=== PATIENT | male | born 1980 ===

== ENCOUNTER 2021-04-03 12:16 | Outpatient (REF) | payer OTHER, SELFPAY ==
[2021-04-03 13:31] LABS: COVID-19 Test Negative (Negative)
== END 2021-04-03 12:17 | disposition home or self-care (01) ==
LOC: HO.LAB 12:16
PROVIDERS: Visit Provider Internal Medicine
DX: Z20.822 Contact with and (suspected) exposure to COVID-19 (principal)
CPT/HCPCS: 87635; C9803

== ENCOUNTER → 2022-05-29 10:06 | Outpatient (BNVA) | payer BC, SELFPAY | PROVIDERS: Visit Provider Physician Assistant Surgical | DX: Z13.89 Encounter for screening for other disorder (principal) ==

== ENCOUNTER → 2022-06-06 10:37 | Outpatient (BNVA) | payer BC, SELFPAY | PROVIDERS: PCP Internal Medicine; Visit Provider Physician Assistant Surgical | DX: Z13.89 Encounter for screening for other disorder (principal) ==

== ENCOUNTER 2022-06-06 11:51 | Outpatient (REF) | payer BC, SELFPAY ==
--- NOTE | ~2022-06-06 | XR_ITS ---
EXAMINATION: XR CHEST CLINICAL INFORMATION: Reason for Exam E66.01 - Morbid (severe) obesity due to excess calories COMPARISON: None TECHNIQUE: 2 views of the chest FINDINGS: Clear lungs. No pneumothorax or pleural effusion. Borderline enlarged cardiac silhouette. XR/XR chest 2V IMPRESSION: Borderline enlarged cardiac silhouette.
--- NOTE | 2022-06-06 11:58 | ECG_ITS ---
Test Reason : morbid obesity Blood Pressure : / mmHG Vent. Rate : 064 BPM Atrial Rate : 064 BPM P-R Int : 186 ms QRS Dur : 102 ms QT Int : 408 ms P-R-T Axes : 018 030 199 degrees QTc Int : 420 ms Normal sinus rhythm Left ventricular hypertrophy with repolarization abnormality ( Sokolow-Romero ) Abnormal ECG No previous ECGs available Referred By: Jayshree Morales Electronically Signed By:ALTON ROMERO MD
[2022-06-06 12:04] LABS: MANUAL DIFF FLAG NO
[2022-06-06 12:26] LABS: Basophils Percent Auto 0.4 % (0-2); Eosinophils Absolute Auto 0.2 X10*3/uL (0.0-0.4); Hematocrit 44.5 % (42.0-52.0); Imm Gran Abs Auto 0.04 X10*3/uL (0.00-0.03); Imm Gran Pct Auto 0.4 % (0.0-0.4); Mean Corpuscular HGB Conc 33.7 g/dl (31.0-36.0); Mean Corpuscular Hemoglobin 27.6 pg (27.0-33.0); Mean Corpuscular Volume 81.8 fL (80.0-98.0); Mean Platelet Volume 9.9 fL (9.4-12.4); Monocytes Absolute Auto 0.6 X10*3/uL (0.1-1.2); Monocytes Percent Auto 6.1 % (2-11); Neutrophils Absolute Auto 5.3 x10*3/uL (2.0-8.3); Neutrophils Percent Auto 58.1 % (45-73); Platelet Count 262 X10*3/uL (160-400); Red Blood Count 5.44 X10*6/uL (4.60-5.80); White Blood Count 9.2 X10*3/uL (4.8-10.8)
[2022-06-06 12:38] LABS: Estimated Average Glucose 108 mg/dL; Hemoglobin A1c % 5.4 %
[2022-06-06 13:07] LABS: Alanine Aminotransferase 52 U/L (0-40); Albumin Level 4.2 g/dL (3.5-5.0); Alkaline Phosphatase 78 U/L (39-117); Anion Gap 14 (12-20); Aspartate Amino Transferase 32 U/L (5-37); Bilirubin Total 1.1 mg/dL (0.0-1.0); Blood Urea Nitrogen 12 mg/dL (9-16); C Reactive Protein 0.89 mg/dL (< or = 0.50); Carbon Dioxide 26 mmol/L (22-29); Chloride 107 mmol/L (96-108); Cholesterol 161 mg/dL; Estimated Glomerular Filt Rate 59; Glucose Random 96 mg/dL (60-115); HDL Cholesterol 30 mg/dL; Iron 71 mcg/dL (45-160); LDL Cholesterol Calculated 114 mg/dl; Percent Iron Saturation 28 % (15-50); Potassium 3.7 mmol/L (3.3-5.1); Sodium 143 mmol/L (135-145); Total Iron Binding Capacity 258 mcg/dL (228-428); Total Protein 7.2 g/dL (6.5-8.0); Triglycerides 87 mg/dL; Unsaturated Iron Binding 187 ug/dL
[2022-06-06 13:27] LABS: Ferritin 158 ng/mL (20-250); Folate 18.8 ng/mL (> or = 4.0); Insulin 13 uU/mL (2-29); TSH reflex Free T4 1.07 uIU/mL (0.32-4.0); Vitamin B12 750 pg/mL (200-900); Vitamin D 25-OH Total 30.5 ng/mL (>30)
[2022-06-07 16:23] LABS: Calcium (PTHI) 9.3 mg/dL (8.6-10.3); PTHI 63 pg/mL (16-77)
[2022-06-11 06:14] LABS: Zinc 78 mcg/dL (60-130)
[2022-06-12 17:39] LABS: Vitamin A 61 mcg/dL (38-98)
[2022-06-13 15:29] LABS: Vitamin B1 11 nmol/L (8-30)
== END 2022-06-06 11:52 | disposition home or self-care (01) ==
LOC: HO.LAB 11:51
PROVIDERS: Visit Provider Physician Assistant Surgical
DX: Z01.818 Encounter for other preprocedural examination (principal); E66.01 Morbid (severe) obesity due to excess calories; I10 Essential (primary) hypertension; Z20.2 Contact with and (suspected) exposure to infections with a predominantly sexual mode of transmission
CPT/HCPCS: 36415; 71046; 80053; 80061; 82306; 82607; 82728; 82746; 83036; 83525; 83540; 83970; 84425; 84443; 84590; 84630; 85025; 86140; 93005

== ENCOUNTER → 2022-06-25 14:30 | Outpatient (BNVA) | payer BC, SELFPAY | PROVIDERS: PCP Internal Medicine; Visit Provider Counselor Mental Health | DX: Z13.89 Encounter for screening for other disorder (principal) ==

== ENCOUNTER 2023-01-01 10:47 | Outpatient (AMB) | payer BC, SELFPAY ==
--- NOTE | 2023-01-01 11:01 | A.OFFVIS_ITS ---
Intake VS Expanded 01/01/23 11:18 Blood Pressure Location Rt brachial Blood Pressure Position Sitting Pulse 66 Pulse Source Pulse Oximeter Temp 97.7 F Temperature Source Temporal Artery Scan Pulse Oximetry 98 Oxygen Delivery Method Room Air Height 5 ft 10.5 in Weight 280 lb 9.6 oz BMI 39.7 Body Fat % 33.8 Body Fat Mass 94.8 Fat Free Mass 185.6 Visceral Fat Rating 18.0 Body Water % 49.4 Body Water Mass 138.6 Muscle Mass/Score 176.6 Basal Metabolic Rate/Score 2,577 Intake Visit Reasons: (OV) Re-Est SWL BMI 39.3 Draw Frame Operator Required: No Allergies No Known Allergies [No Known Allergies*] Allergy (Verified 01/01/23 11:15) Medication List - Last Reconciled 01/01/23 by CHAYITO Bright amlodipine 10 mg PO DAILY carvedilol 6.25 mg PO BID lisinopril 40 mg PO DAILY multivitamin 1 tab PO DAILY omega 0-ixv-cgy-fish oil 300-1,000 mg (Fish Oil) 1 cap PO DAILY HPI HPI Comments History of Present Illness Details Pt is here to start the [facility] Weight [facility] surgical weight loss program. He states that he heard about the program from his brother who has successfully undergone surgery with os.. He presented for an initial appointment in May 2022 but he stated that he was going through some personal issues and has since returned to attempt successful endeavor. Her goal is to lose weight and achieve a healthy lifestyle as well as to improve, if not resolve, obesity rel ated medical conditions, including htn, . He reports first being concerned about his weight 4-5 years, highest weight to date was 284. Current weight is 280.6 pounds with a BMI of 39.7. He has tried multiple methods of weight loss including fad diets without permanent results. He lives with his brother. He works 5 days per week for [employer]. He wakes at:?6am, and goes to bed at?10pm. Dinner is at 6 pm. Breakfast: bagel w cc coffee w creamer AM snack: tea or another coffee Lunch: subway or hot table sandwich take out PM snack: skip Dinner: fast food After dinner: apple pie, ice cream, brownie Other snacks: cookies Liquids: 64 oz water, no soda, no juice Alcohol/marijuana/tobacco intake: hard seltzer/vodka (4-5 drinks twice per week), rare edible, no tobacco Exercise: pelaton and tonal at home PFS Surgical History H/O wisdom tooth extraction Family History Sister Breast cancer in situ Brain cancer Social History Household Members: Family Household Members Other:: brother Alcohol intake: current Alcohol intake frequency: a few times a month Alcohol type: hard liquor Patient Tobacco Use Status: Never used Tobacco Current occupational status: employed 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 Review of Systems Const All systems reviewed & are unremarkable except as noted in HPI and below Physical Exam Vital Signs: Last Vital Signs Temp 97.7 F 01/01/23 11:18 Pulse 66 01/01/23 11:18 Pulse Ox 98 01/01/23 11:18 Oxygen Delivery Method Room Air 01/01/23 11:18 BMI result Body Mass Index 39.7 Const General: cooperative, healthy appearing and no acute distress Orientation/consciousness: patient oriented x3 HEENT Head: Yes normal to inspection Ears: hearing grossly normal bilaterally General nose exam: Normal external nose present Face and sinus: Yes normal facial exam Eyes General: appearance normal, both eyes and all related structures Resp Effort & Inspection: normal respiratory effort Auscultation: clear to auscultation bilaterally Cardio Rate: regular rate Rhythm: regular rhythm Heart sounds: S1 normal heart sound present and S2 normal heart sound present GI Inspection: Yes normal to inspection, No distended and Yes obesity Palpation (GI): Soft to palpation, nontender and no guarding Auscultation: normal bowel sounds Skin General skin exam: no rashes or lesions noted Neuro General: patient oriented x3 Extrem General: No edema Psych Appearance: grossly normal Mental Status: mental status grossly normal Speech and movement: Normal speech and movement present Affect: normal affect Attitude: cooperative Assessment & Plan Assessment & Plan (1) Morbid obesity: Code(s): E66.01 - Morbid (severe) obesity due to excess calories Plan: This is a?42 yo male who will start our SW program to prepare for bariatric surgery.? Blood work, h pylori , CXR, ECG, Abd US and UGI have been ordered. He is being scheduled for RD and BH initial consultations. He will start SWL classes and watch the first three videos before her next appointment. ? Adequate sleep of 7-8 hours per night discussed, awakening at 6 am and going to bed at 10 pm ? Purchase body composition analyzer scale (Eran parikh or Carlee recommended) and check weight weekly. The best time to do this is first thing in the morning after going to the bathroom. 1. Nutritional counseling: Be sure to careful read the number of scoops per shake Start with 2 Celebrate Rebuild shakes ([facility] [place], [employer], [place]), (2 scoops in 20 oz unsweetened almond milk) First shake at 7am-9am Second shake at 11am-1pm 1 protein bar ([employer] bars at [facility] [place], [employer], [place]) at 2pm-4pm. Dinner at 630pm (10 forks of protein and 10 forks of salad/vegetables). Meal to include lean meat (beef, fish, pork, turkey, chicken), cooked vegetables or a salad with olive oil and/or fruits (berries, pears, apples, kiwi). Avoid salt, breads, potatoes, rice, pasta, desserts. Try to drink 64 oz of water daily and avoid soda, alcohol and juices. ?2. Each shake would be drunk slowly, like coffee in a period of 2 hours. ?3. Cut each bar in 4 pieces and eat each piece in 30 min ?to make each bar last 2 hours. ?4. I emphasized the importance of measuring accurately the food portion and measure it carefully when serving the food on the plate ?5. The meal portions include 10 full-size forks of meat and 10 full-size forks of salad. You always eat the meat portion but you can replace up to half of the forks of salad/vegetables with rice, potatoes or pasta, or a fruit ?if you like. The less you do it the better weight loss will be. ?6. One full-size fork is what can be scooped on the fork without falling aside and not what can be bit with the fork. Use regular forks like those you find in a typical restaurant. ?7.? Please send me weight measurements as soon as possible and then once a week. Always include your diet and exercise plan. Alternatively come weekly at the office for weight checks and send me the measurements. ?8. Exercise counseling: Begin by watching a stretching for beginners video. Start slowly and begin to stretch your muscles. You should do this before and after each exercise session to prevent injury. You have access to the Pelaton bike and Tonal exercise machine at home. Start using the stationary bike. The easiest would be to chose the fat-burn or interval training program on the machine and do this until you reach the 300 calories burned goal. Tracking calories is essential. The goal is to burn 300 calories daily or 2000 calories per week. You certainly can also do weight lifting using the Tonal prior to the cardio workout but not at the expense of the cardio workout. 9. Alternatively start walking outside daily, tracking calories with a goal of 300 calories per day, daily. You can download the rob [employer] which can track your time, distance and calories while walking outside. You press start in the rob when you start and then stop when you are finished. 10.? It is important to communicate by text with me weekly (your weight fox surements from your scale and any problems you are having) to give you the best outcome. 11. Please get labs, EKG and chest X-Ray within 1 week. 12. Discussed and answered all questions regarding?obtained consent to participate in the [place] [facility]?Registry. 13. Please follow the diet plan exactly, without any change. If you do not like something about the plan or you feel hungry, you need to communicate with me so I can help you revise the plan. You should not change the plan yourself. Text me at [phone] 14. Goal is to lose at least 12 pounds in the first month 15. Goal is to lose 10% of your weight before surgery, which is about 28 lbs. Ultimate weight goal: 252 lbs before surgery Patient is morbidly obese and is not considered stable at this time.?I spent a total of 70 minutes reviewing/updating records, examining the patient and counseling the patient on weight management as detailed above. Orders: Orders IRON PROFILE Today E66.01 - Morbid (severe) obesity due to excess calories, I10 - Essential (primary) hypertension Complete Blood Count Auto Diff Today E66.01 - Morbid (severe) obesity due to excess calories, I10 - Essential (primary) hypertension Vitamin B1 Today E66.01 - Morbid (severe) obesity due to excess calories, I10 - Essential (primary) hypertension Vitamin A Today E66.01 - Morbid (severe) obesity due to excess calories, I10 - Essential (primary) hypertension H Pylori Breath Test Today E66.01 - Morbid (severe) obesity due to excess calories, I10 - Essential (primary) hypertension US abdomen comp w elastography Today E66.01 - Morbid (severe) obesity due to excess calories, I10 - Essential (primary) hypertension XR chest 2V Today E66.01 - Morbid (severe) obesity due to excess calories, I10 - Essential (primary) hypertension ECG 12 lead EKG Today E66.01 - Morbid (severe) obesity due to excess calories, I10 - Essential (primary) hypertension FL upper GI w air Today E66.01 - Morbid (severe) obesity due to excess calories, I10 - Essential (primary) hypertension Insulin Today E66.01 - Morbid (severe) obesity due to excess calories, I10 - Essential (primary) hypertension Lipid Panel Today E66.01 - Morbid (severe) obesity due to excess calories, I10 - Essential (primary) hypertension Vitamin B12 and Folate Today E66.01 - Morbid (severe) obesity due to excess calories, I10 - Essential (primary) hypertension Zinc Today E66.01 - Morbid (severe) obesity due to excess calories, I10 - Essential (primary) hypertension Comprehensive Met. Panel Today E66.01 - Morbid (severe) obesity due to excess calories, I10 - Essential (primary) hypertension C Reactive Protein Today E66.01 - Morbid (severe) obesity due to excess calories, I10 - Essential (primary) hypertension Ferritin Today E66.01 - Morbid (severe) obesity due to excess calories, I10 - Essential (primary) hypertension PTHI Today E66.01 - Morbid (severe) obesity due to excess calories, I10 - Essential (primary) hypertension TSH reflex Free T4 Today E66.01 - Morbid (severe) obesity due to excess calories, I10 - Essential (primary) hypertension Vitamin D 25-OH Total Today E66.01 - Morbid (severe) obesity due to excess calories, I10 - Essential (primary) hypertension Hemoglobin A1c Today E66.01 - Morbid (severe) obesity due to excess calories, I10 - Essential (primary) hypertension Referrals Nutrition/Dietitian Referral E66.01 - Morbid (severe) obesity due to excess calories, I10 - Essential (primary) hypertension Coding Level of Care Code Est Pt Level 5 (61121) Diagnoses Morbid obesity E66.01 Time Spent (min) 70
[2023-01-01 11:18] VITALS: PULSE 66; TEMP 36.5; O2SAT 98; BMI 39.7
== END 2023-01-01 17:36 | disposition home or self-care (01) ==
PROVIDERS: PCP Internal Medicine; Visit Provider Physician Assistant Surgical
DX: E66.01 Morbid (severe) obesity due to excess calories (principal); Z68.39 Body mass index [BMI] 39.0-39.9, adult
CPT/HCPCS: 99215

== ENCOUNTER → 2023-01-01 10:47 | Outpatient (BNVA) | payer BC, SELFPAY | PROVIDERS: PCP Internal Medicine; Visit Provider Physician Assistant Surgical ==

== ENCOUNTER 2023-01-22 11:56 | Outpatient (REF) | payer BC, SELFPAY ==
--- NOTE | ~2023-01-22 | XR_ITS ---
EXAMINATION: XR CHEST CLINICAL INFORMATION: Morbid, severe obesity COMPARISON: 06/06/2022 TECHNIQUE: 2 views of the chest were obtained. FINDINGS: Cardiac silhouette upper limits of normal in size. There is no gross pneumothorax. No pleural effusion. No focal consolidation to suggest pneumonia. Mild S-shaped thoracolumbar scoliosis. XR/XR chest 2V IMPRESSION: Cardiac silhouette upper limits of normal in size. On previous exam, the cardiac silhouette was described as borderline enlarged. Correlation with cardiac exam recommended to determine further management.
--- NOTE | 2023-01-22 12:02 | ECG_ITS ---
Test Reason : E66.01 Blood Pressure : / mmHG Vent. Rate : 063 BPM Atrial Rate : 063 BPM P-R Int : 204 ms QRS Dur : 102 ms QT Int : 382 ms P-R-T Axes : 069 017 030 degrees QTc Int : 390 ms Normal sinus rhythm Minimal voltage criteria for LVH, may be normal variant ( Sokolow-Romero ) Nonspecific T wave abnormality Abnormal ECG When compared with ECG of 06-JUN-2022 12:06, Nonspecific T wave abnormality has replaced inverted T waves in Lateral leads Referred By: Michael Lutz Electronically Signed By:BANDAR STEPHEN MD
[2023-01-22 12:22] LABS: MANUAL DIFF FLAG NO
[2023-01-22 13:49] LABS: Basophils Percent Auto 0.3 % (0-2); Eosinophils Absolute Auto 0.1 X10*3/uL (0.0-0.4); Eosinophils Percent Auto 1.2 % (0-4); Estimated Average Glucose 91 mg/dL; Hematocrit 43.1 % (42.0-52.0); Hemoglobin 14.6 g/dl (14.0-18.0); Hemoglobin A1c % 4.8 % (<6.0); Imm Gran Abs Auto 0.01 X10*3/uL (0.00-0.03); Imm Gran Pct Auto 0.1 % (0.0-0.4); Lymphocytes Absolute Auto 2.7 X10*3/uL (1.2-4.9); Lymphocytes Percent Auto 30.3 % (20-40); Mean Corpuscular HGB Conc 33.9 g/dl (31.0-36.0); Mean Corpuscular Hemoglobin 28.2 pg (27.0-33.0); Mean Corpuscular Volume 83.4 fL (80.0-98.0); Mean Platelet Volume 10.2 fL (9.4-12.4); Monocytes Absolute Auto 0.6 X10*3/uL (0.1-1.2); Monocytes Percent Auto 6.7 % (2-11); Neutrophils Absolute Auto 5.5 x10*3/uL (2.0-8.3); Neutrophils Percent Auto 61.4 % (45-73); Platelet Count 267 X10*3/uL (160-400); Red Blood Count 5.17 X10*6/uL (4.60-5.80); Red Cell Distribution Width 12.7 % (11.0-16.0); White Blood Count 8.9 X10*3/uL (4.8-10.8)
[2023-01-22 14:29] LABS: Alanine Aminotransferase 29 U/L (0-40); Albumin Level 4.3 g/dL (3.5-5.0); Alkaline Phosphatase 74 U/L (39-117); Anion Gap 10 (12-20); Aspartate Amino Transferase 26 U/L (5-37); Bilirubin Total 0.9 mg/dL (0.0-1.0); Blood Urea Nitrogen 19 mg/dL (9-16); C Reactive Protein 0.53 mg/dL (< or = 0.50); Calcium 9.7 mg/dL (8.4-10.2); Carbon Dioxide 27 mmol/L (22-29); Chloride 106 mmol/L (96-108); Cholesterol 107 mg/dL (<200); Estimated Glomerular Filt Rate 47; Glucose Random 87 mg/dL (60-115); HDL Cholesterol 25 mg/dL (>40); Iron 57 mcg/dL (45-160); LDL Cholesterol Calculated 68 mg/dL (<100); Percent Iron Saturation 22 % (15-50); Potassium 3.4 mmol/L (3.3-5.1); Sodium 140 mmol/L (135-145); Total Iron Binding Capacity 256 mcg/dL (228-428); Total Protein 7.8 g/dL (6.5-8.0); Triglycerides 71 mg/dL (<150); Unsaturated Iron Binding 199 ug/dL
[2023-01-22 14:51] LABS: Ferritin 194 ng/mL (20-250); Insulin 9 uU/mL (2-29); TSH reflex Free T4 0.72 uIU/mL (0.32-4.0); Vitamin D 25-OH Total 31.2 ng/mL (>30)
[2023-01-22 14:52] LABS: Folate 17.5 ng/mL (> or = 4.0); Vitamin B12 944 pg/mL (200-900)
[2023-01-24 16:34] LABS: Calcium (PTHI) 8.4 mg/dL (8.6-10.3); PTHI 27 pg/mL (16-77)
[2023-01-25 07:49] LABS: Zinc 72 mcg/dL (60-130)
[2023-01-27 11:48] LABS: Vitamin B1 19 nmol/L (8-30)
[2023-01-27 17:53] LABS: Vitamin A 59 mcg/dL (38-98)
== END 2023-01-22 11:57 | disposition home or self-care (01) ==
LOC: HO.LAB 11:56
PROVIDERS: PCP Internal Medicine; Visit Provider Physician Assistant Surgical
DX: Z11.2 Encounter for screening for other bacterial diseases (principal); E66.01 Morbid (severe) obesity due to excess calories; I10 Essential (primary) hypertension
CPT/HCPCS: 36415; 71046; 80053; 80061; 82306; 82607; 82728; 82746; 83036; 83525; 83540; 83970; 84425; 84443; 84590; 84630; 85025; 86140; 93005; 99211

== ENCOUNTER 2023-01-22 13:25 | Outpatient (REF) | payer BC, SELFPAY ==
[2023-01-24 14:36] LABS: H Pylori Breath Test Negative (Negative)
== END 2023-01-22 13:26 | disposition home or self-care (01) ==
LOC: HO.LNP 13:25
PROVIDERS: Physician Assistant Surgical; Visit Provider Physician Assistant Surgical
DX: E66.01 Morbid (severe) obesity due to excess calories (principal); I10 Essential (primary) hypertension
CPT/HCPCS: 83013

== ENCOUNTER 2023-01-23 15:01 | Outpatient (REF) | payer BC, SELFPAY | END 2023-01-23 15:02 | disposition home or self-care (01) | LOC: HO.LNP 15:01 | PROVIDERS: Visit Provider Physician Assistant Surgical | DX: Z13.89 Encounter for screening for other disorder (principal) ==

== ENCOUNTER 2023-01-31 09:48 | Outpatient (REF) | payer BC, SELFPAY ==
--- NOTE | ~2023-01-31 | US_ITS ---
EXAMINATION: US COMPLETE ABDOMEN WITH LIVER ELASTOGRAPHY CLINICAL INFORMATION: Morbid obesity. COMPARISON: None available. TECHNIQUE: Real-time imaging of the abdominal viscera. Noninvasive ultrasound liver fibrosis assessment is performed using Sheng ElastPQ point quantification shear wave elastography (2D-SWE) with a C5-2 MHz transducer. Multiple elastography samples are obtained. FINDINGS: PANCREAS: Limited. The visualized pancreatic head and body are normal in appearance. The remainder of the pancreas is obscured from visualization by the overlying bowel gas. ABDOMINAL AORTA: The proximal, middle, and distal aortic segments are normal in caliber. INFERIOR VENA CAVA: Visualized portions are normal. LIVER: Normal. The liver demonstrates normal size, contour and echogenicity. No focal lesion or intrahepatic biliary duct dilatation. The right lobe measures 20.3 cm in length. The left lobe measures 9.8 cm in length. Portal flow is towards the liver (hepatopetal). Shear wave liver elastography median stiffness is 1.62 m/s (reference: normal median stiffness is 1.3 m/s or less). IQR/median stiffness to assess sampling precision is 0.15 (reference: good quality data set is IQR/median stiffness of 0.15 or less). GALLBLADDER: Normal. The gallbladder is physiologically distended without evidence of stones, sludge, polyps, wall thickening or pericholecystic fluid. COMMON BILE DUCT: Normal in caliber measuring 0.2 cm in diameter. RIGHT KIDNEY: At the interpolar aspect, a 1.9 x 1.5 x 1.8 cm mildly complex cyst is seen with solitary fine septation. This shows no mural nodularity or associated color Doppler flow. No hydronephrosis. No renal calculi or focal parenchymal lesions. The kidney measures 11.4 cm in maximum dimension. LEFT KIDNEY: Normal. No hydronephrosis. No renal calculi or focal parenchymal lesions. The kidney measures 10.7 cm in maximum dimension. SPLEEN: No focal finding. The spleen measures 13.0 cm in maximum dimension. FREE FLUID: None. US/US abdomen comp w elastography IMPRESSION: 1. There is mild hepatosplenomegaly. 2. There is generalized increase in hepatic echotexture, consistent with fatty infiltration or hepatocellular disease. Please correlate clinically. No focal hepatic mass or intrahepatic biliary dilatation is seen. 3. Liver elastography: In the absence of other known clinical signs, measurements rule out compensated advanced chronic liver disease. If there are known clinical signs, further testing may be needed for confirmation. 4. Technically limited ultrasound examination of the pancreatic tail. REFERENCE: Society of Radiologists in Ultrasound Liver Stiffness Thresholds (2020): LIVER STIFFNESS THRESHOLDS: *Liver Stiffness equal or less than 1.3 m/s: High probability of being normal. *Liver Stiffness less than 1.7 m/s: In the absence of other known clinical signs, rules out compensated advanced chronic liver disease. *Liver Stiffness 1.7-2.1 m/s: Suggestive of compensated advanced chronic liver disease but need further test for confirmation. *Liver Stiffness over 2.1 m/s: Rules in compensated advanced chronic liver disease. *Liver Stiffness over 2.4 m/s: Suggestive of clinically significant portal hypertension. QUALITY OF DATA SET: *IQR/Median value equal or less than 0.15 implies a quality data set. *IQR/Median value over 0.15 implies a poor quality data set. SIGNIFICANT CHANGE FROM PRIOR EXAM: Significant change if liver stiffness measurement is 10% or greater from prior exam. OTHER CONSIDERATIONS: The stage of liver fibrosis may be overestimated in the setting of acute hepatitis, liver inflammation, elevated liver function tests, hepatic vascular congestion, obstructive cholestasis, non-fasting state, and infiltrative diseases such as amyloidosis and lymphoma. In some patients with NAFLD, the liver stiffness thresholds for compensated advanced chronic liver disease may be lower. In causes other than viral hepatitis and NAFLD, liver stiffness thresholds are not well established.
== END 2023-01-31 09:49 | disposition home or self-care (01) ==
LOC: HO.US 09:48
PROVIDERS: PCP Internal Medicine; Visit Provider Physician Assistant Surgical
DX: E66.01 Morbid (severe) obesity due to excess calories (principal); I10 Essential (primary) hypertension
CPT/HCPCS: 76705; 76981

== ENCOUNTER 2023-02-21 13:17 | Outpatient (AMB) | payer BC, SELFPAY ==
--- NOTE | 2023-02-21 12:56 | A.OFFVIS_ITS ---
Intake VS Expanded 02/21/23 13:00 Height 5 ft 10.5 in Weight 259 lb 8 oz BMI 36.7 Intake Visit Reasons: VIDEO F/U SWL Snack Steward Required: No Allergies No Known Allergies [No Known Allergies*] Allergy (Verified 01/01/23 11:15) Medication List - Last Reconciled 02/21/23 by CHAYITO Bright amlodipine 10 mg PO DAILY carvedilol 6.25 mg PO BID lisinopril 40 mg PO DAILY multivitamin 1 tab PO DAILY omega 7-jlq-msh-fish oil 300-1,000 mg (Fish Oil) 1 cap PO DAILY HPI HPI Comments History of Present Illness Details The patient is a pleasant 42 year old male who returns to the clinic for pre-operative surgical weight loss management. They were last seen in the office on 01/01/2023, recorded weight at that time was 280.6 pounds, with a BMI of 39.7. Today's weight is 259.8 pounds and BMI is 36.7. There has been a weight loss of 20.8 pounds since initiating the surgical weight loss program on 01/01/2023 with a total body weight loss of 7.4 %. Pre op work up completed as follows: SWL classes:? BH appts: cleared 06/15/22 ? ? RD appts: 02/24/2023 Labs: 01/22/2023, serum creatinine 1.62, followed by [facility] on 02/26/23 H. pylori: 01/23/23-neg CXR: 01/22/2023 borderline cardiomegaly EK01/22/2023 nonspecific T-wave abnormality ABD U/S: 01/31/2023 fatty liver UGI: 03/20/2023 The patient reports he has had some personal problems and was sick over the . The personal issues improved and he recovered from his illness. The patient does have a body composition scale. They also have been communicating weekly. , he states that he switched the order of the meal plan. He was doing shake bar shake meal but was only having a proximally 5 forks of protein and 5 forks of salad or vegetables. He feels better and is sleeping better. Current meal plan includes: 2 Celebrate Rebuild shakes ([facility] [employer], [employer], [employer]), (2 scoops in 20 oz unsweetened almond milk) First shake at 7am-9am Second shake at 11am-1pm 1 protein bar (Celebrate bars at [facility] [employer], [employer], [employer]) at 2pm-4pm. Dinner at 630pm (10 forks of protein and 10 forks of salad/vegetables). 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 Recommendation is to change meal plan slightly. Shake, celebrate rebuild, 2 scoops with 16 oz of almond milk Another shake. Celebrate protein bar. meal 9 forks protein and 9 forks veg Telehealth Telehealth Location of provider rendering services: practice address Location of patient: address on file Patient Identification confirmed using: Name, : Yes Telehealth method: voice only Patient verbally consented to treatment: Yes Patient verbally consented to billing insurance company: Yes Patient informed of any privacy concerns related to visit: Yes Minutes spent on Phone/Video with Pt.: 15 Coding Level of Care Code Tele Est Pt Level 3 (30326) Diagnoses Obesity (BMI 30-39.9) E66.9
[2023-02-21 13:00] VITALS: BMI 36.7
== END 2023-02-21 13:34 | disposition home or self-care (01) ==
LOC: HO.HBS 13:17
PROVIDERS: PCP Internal Medicine; Visit Provider Physician Assistant Surgical
DX: E66.9 Obesity, unspecified (principal); Z68.36 Body mass index [BMI] 36.0-36.9, adult
CPT/HCPCS: 99442

== ENCOUNTER → 2023-02-21 13:17 | Outpatient (BNVA) | payer BC, SELFPAY | PROVIDERS: PCP Internal Medicine; Visit Provider Physician Assistant Surgical ==

== ENCOUNTER 2023-02-24 13:15 | Outpatient (AMB) | payer BC, SELFPAY ==
--- NOTE | 2023-02-24 13:04 | A.OFFVIS_ITS ---
Intake Intake Visit Reasons: VIDEO Initial Nutrition [facility] In Flight Refueling Operator Required: No Allergies No Known Allergies [No Known Allergies*] Allergy (Verified 01/01/23 11:15) HPI Nutrition Presentation Reason for consult elevated BMI Diet Assmnt Details using celebrate bars and shakes, following plan provided by . pt is doing great. has no questions dinner meal; chicken or shrimp and vegetables - likes to meal prep Lives with brother and his kids . Brother had bariatric surgery with us 1.5 years ago Exercise: walking 6 miles both Friday and Friday. [facility] online classes: 06/22 . pt has a good understanding regarding post op nutrition recs. Dietary counseling reduction Who buys your food self Who prepares/cooks your food self Meal frequency regular: breakfast (bagels with cream cheese, coffee with a lot sugar ), lunch, dinner and snacks (sweets) Lifestyle Eating out 4 or more times/week Food frequency Fruit: several times weekly, Vegetables: several times weekly, Grains/pasta/breads/cereal (carbs): daily, Meats/poultry/fish (protein): daily, Meat substitutes/nuts/seeds/legumes: daily, Water: daily, Soda: several times weekly, Juice: never and Coffee: daily Diagnosis Nutrition problem #1 overweight/obesity As related to (etiology) #1 excess energy intake and physical inactivity As evidenced by (sign/symptom) #1 high BMI Monitoring/Goals Nutrition problem monitoring total energy intake, level of knowledge/skill, total PRO intake, total CHO intake, weight and oral fluids Outcome progress progressing Learning/Education Readiness to learn excellent Stages of change action Educational materials provided Yes Most Recent Diabetes Results: Cholesterol 107 mg/dL (<200) 01/22/23 HDL Cholesterol 25 mg/dL (>40) L 01/22/23 Triglycerides 71 mg/dL (<150) 01/22/23 Creatinine 1.62 mg/dL (0.5-1.4) H 01/22/23 Blood Urea Nitrogen 19 mg/dL (9-16) H 01/22/23 Sodium 140 mmol/L (135-145) 01/22/23 Potassium 3.4 mmol/L (3.3-5.1) 01/22/23 Chloride 106 mmol/L (96-108) 01/22/23 Carbon Dioxide 27 mmol/L (22-29) 01/22/23 Calcium 9.7 mg/dL (8.4-10.2) 01/22/23 AST 26 U/L (5-37) 01/22/23 ALT 29 U/L (0-40) 01/22/23 Total Protein 7.8 g/dL (6.5-8.0) 01/22/23 Albumin 4.3 g/dL (3.5-5.0) 01/22/23 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 Educational requirements have been completed. Reviewed vitamin supplementation and commitment to protein shake for several months post surgery. Encouraged communication with office as needed Telehealth Telehealth Location of provider rendering services: practice address Location of patient: address on file Patient Identification confirmed using: Name, : Yes Telehealth method: video Patient verbally consented to treatment: Yes Patient verbally consented to billing insurance company: Yes Patient informed of any privacy concerns related to visit: Yes Minutes spent on Phone/Video with Pt.: 15 Coding Level of Care Code Nutr Indiv Intake (86033) Diagnoses Obesity (BMI 30-39.9) E66.9 Time Spent (min) 15
== END 2023-02-24 13:18 | disposition home or self-care (01) ==
LOC: HO.HBS 13:15
PROVIDERS: PCP Internal Medicine; Referring Provider Physician Assistant Surgical; Visit Provider Dietitian, Registered
DX: E66.9 Obesity, unspecified (principal)

== ENCOUNTER → 2023-02-24 13:15 | Outpatient (BNVA) | payer BC, SELFPAY | PROVIDERS: PCP Internal Medicine; Referring Provider Physician Assistant Surgical; Visit Provider Dietitian, Registered | DX: E66.9 Obesity, unspecified (principal); Z71.3 Dietary counseling and surveillance | CPT/HCPCS: 97802 ==

== ENCOUNTER 2023-03-20 08:21 | Outpatient (REF) | payer BC, SELFPAY | END 2023-03-20 08:22 | disposition home or self-care (01) | LOC: HO.XRAY 08:21 | PROVIDERS: PCP Internal Medicine; Visit Provider Physician Assistant Surgical | DX: E66.01 Morbid (severe) obesity due to excess calories (principal); I10 Essential (primary) hypertension | CPT/HCPCS: 74246 ==

== ENCOUNTER → 2023-03-20 08:22 | Outpatient (BNV) | payer BC, SELFPAY | PROVIDERS: PCP Internal Medicine; Visit Provider Radiology Diagnostic Radiology | DX: Z01.818 Encounter for other preprocedural examination (principal) | CPT/HCPCS: 74246 ==

== ENCOUNTER 2023-04-09 13:25 | Outpatient (AMB) | payer BC, SELFPAY ==
[2023-04-09 12:43] VITALS: BMI 36.4
--- NOTE | 2023-04-09 12:43 | A.OFFVIS_ITS ---
Intake VS Expanded 04/09/23 12:43 Height 5 ft 10.5 in Weight 257 lb 3.2 oz BMI 36.4 Body Fat % 40.3 Body Fat Mass 103.6 Body Water % 37.3 Body Water Mass 95.9 Muscle Mass/Score 81.7 Intake Visit Reasons: (TV) F/U SWL Prepper Required: No Allergies No Known Allergies [No Known Allergies*] Allergy (Verified 01/01/23 11:15) Medication List - Last Reconciled 04/09/23 by CHAYITO Bright carvedilol 6.25 mg PO DAILY lisinopril 40 mg PO DAILY multivitamin 1 tab PO DAILY nifedipine ER 60 mg PO DAILY omega 6-fht-bzt-fish oil 300-1,000 mg (Fish Oil) 1 cap PO DAILY HPI HPI Comments History of Present Illness Details The patient is a pleasant 42 year old male who returns to the clinic for pre-operative surgical weight loss management. They were last seen in the office on 02/21/2023, recorded weight at that time was 259.8 pounds, with a BMI of 36.7. Today's weight is 257.2 pounds and BMI is 36.4. There has been a weight loss of 23.4 pounds since initiating the surgical weight loss program on 01/01/2023 with a total body weight loss of 8.3 %. Pre op work up completed as follows: SWL classes:? 0 BH appts: cleared 06/15/22 ? ? RD appts: cleared-02/24/23 Labs: 01/22/2023, serum creatinine 1.62, followed by [facility] on 02/26/23 H. pylori: 01/23/23-neg CXR: 01/22/2023 borderline cardiomegaly EK01/22/2023 nonspecific T-wave abnormality ABD U/S: 01/31/2023 fatty liver UGI: 03/20/23-normal The patient reports he has had some personal problems due to the loss of her sister in February several years ago. He also did the best he could over february. He had right sided numbness to his body on JORGE, and was in the ER 03/17/23. w/u was negative. recc f/u w pcp 03/18/23 and symptoms resolved spontaneously. It has not happened since. He did not work out for two weeks. Current meal plan includes: 2 Celebrate Rebuild shakes, (2 scoops in 16 oz unsweetened almond milk) First shake at 7am-9am Second shake at 11am-1pm 1 protein bar (Celebrate bars) at 2pm-4p m. Dinner at 630pm (9 forks of protein and 9 forks of salad/vegetables). Drinking 64-80 oz of water Current exercise plan includes: pelaton 45 min, 440 michele, instead of walking outside due to weather. 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 We will change meal plans slightly: 2 Celebrate Rebuild shakes, (2 scoops in 12 oz unsweetened almond milk) First shake at 7am-9am Second shake at 11am-1pm 1 protein bar (Celebrate bars) at 2pm-4pm. Dinner at 630pm (8 forks of protein and 8 forks of salad/vegetables). He will continue to use the [employer] gym, while adding Peloton bike afterwards for 300 calories, 3 days a week and using the Peloton bike exclusively 2 days a week for [address]. [address] Hua for continued pre surgical care Telehealth Telehealth Location of provider rendering services: practice address Location of patient: address on file Patient Identification confirmed using: Name, : Yes Telehealth method: voice only Patient verbally consented to treatment: Yes Patient verbally consented to billing insurance company: Yes Patient informed of any privacy concerns related to visit: Yes Minutes spent on Phone/Video with Pt.: 25 Coding Level of Care Code Tele Est Pt Level 3 (67075) Diagnoses Obesity (BMI 30-39.9) E66.9 Time Spent (min) 30
== END 2023-04-09 13:27 | disposition home or self-care (01) ==
LOC: HO.HBS 13:25
PROVIDERS: PCP Internal Medicine; Visit Provider Physician Assistant Surgical
DX: E66.9 Obesity, unspecified (principal); Z68.36 Body mass index [BMI] 36.0-36.9, adult
CPT/HCPCS: 99443

== ENCOUNTER → 2023-04-09 13:25 | Outpatient (BNVA) | payer BC, SELFPAY | PROVIDERS: PCP Internal Medicine; Visit Provider Physician Assistant Surgical ==

== ENCOUNTER 2023-05-02 08:16 | Outpatient (AMB) | payer BC, SELFPAY ==
--- NOTE | 2023-05-02 13:05 | A.OFFVIS_ITS ---
Intake VS Expanded 05/02/23 13:21 05/02/23 13:27 BP 160/90 H Height 5 ft 10.5 in Weight 252 lb 2 oz BMI 35.7 Intake Visit Reasons: TV Consult/Transfer Allergies No Known Allergies [No Known Allergies*] Allergy (Verified 05/02/23 13:06) Medication List - Last Reconciled 05/02/23 by Doyle Hua MD carvedilol 6.25 mg PO DAILY lisinopril 40 mg PO DAILY multivitamin 1 tab PO DAILY nifedipine ER 60 mg PO DAILY omega 8-kvx-jcd-fish oil 300-1,000 mg (Fish Oil) 1 cap PO DAILY HPI TV Consult/Transfer HPI Details Start time: 12.46pm, End time: 1.31pm ?I spent 35 minutes speaking with the patient on the phone plus an additional 10 minutes reviewing and updating records for a total of 45 minutes HPI Comments History of Present Illness Details Overall weight loss: 28.4lbs, or 10.12% TBWL Is doing 2 Celebrate Rebuild protein shakes (2 scoops in 12oz almond milk), one Celebrate protein bar and a meal (8 forks of protein and 8 forks of salad or vegetables) Exercise: doing Peloton bike x2/week for 450 calories and walking outside x 3/week for 750 calories 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 Plan for lap sleeve gastrectomy including upper GI endoscopy. All tests has been completed and reviewed and the patient is cleared for the surgery. ?If diaphragmatic or ventral hernias are present at time of surgery, these will be repaired laparoscopically as well. Risks and complications were discussed in detail including possible conversion to an open procedure, anastomotic leak, bleeding requiring transfusion, small bowel obstruction, , DVT and pulmonary embolism, cardiac, or pulmonary complications, as custodial complications such as anastomotic ulcer, insufficient weight loss and vitamin deficiencies. I emphasized the importance of close follow-up, adherence to instructions and good communication. So far he has proven to be an excellent communicator and very compliant with all our directions accomplishing a great weight loss. I believe that he is an excellent candidate and he is ready. 2. Change nutritional plan to 2 Celebrate Rebuild protein shakes (ONE AND A HALF scoops EACH in 12oz almond milk) at 7am-9am and 10am-12pm, TWO Celebrate protein bars at 1pm-3pm and 4pm-6pm, dinner at 7pm (8 forks of protein and 8 forks of salad or vegetables). If hungry after dinner, please do another HALF protein bar at 9pm-10pm. 3. Exercise: Continue Peloton bike x2/week for 450 calories and walking outside x 3/week for 750 calories 4. Send me weight measurements weekly Orders: Orders CA stress test Today I51.7 - Cardiomegaly, R94.31 - Abnormal electrocardiogram [ECG] [EKG] CA echo transthorac w con Today I51.7 - Cardiomegaly, R94.31 - Abnormal electroc ardiogram [ECG] [EKG] Telehealth Telehealth Location of provider rendering services: practice address Location of patient: address on file Patient Identification confirmed using: Name, : Yes Telehealth method: voice only Patient verbally consented to treatment: Yes Patient verbally consented to billing insurance company: Yes Patient informed of any privacy concerns related to visit: Yes Minutes spent on Phone/Video with Pt.: 45 Coding Level of Care Code Tele Est Pt Level 4 (13686) Diagnoses Obesity (BMI 30-39.9) E66.9 Time Spent (min) 45
[2023-05-02 13:21] VITALS: BMI 35.7
[2023-05-02 13:27] VITALS: BP 160/90
== END 2023-05-02 13:32 | disposition home or self-care (01) ==
LOC: HO.HBS 08:16
PROVIDERS: PCP Internal Medicine; Visit Provider Surgery
DX: E66.9 Obesity, unspecified (principal); Z68.35 Body mass index [BMI] 35.0-35.9, adult
CPT/HCPCS: 99443

== ENCOUNTER → 2023-05-02 08:16 | Outpatient (BNVA) | payer BC, SELFPAY | PROVIDERS: PCP Internal Medicine; Visit Provider Surgery ==

== ENCOUNTER → 2023-05-09 08:09 | Outpatient (REF) | payer BC, SELFPAY ==
--- NOTE | 2023-05-09 10:49 | CA_ITS ---
Acquisition Time: 2023-05-09 08:19:01 Total Exercise Time: 00:10:25 Test Indications: HTN Medications: SEE H Protocol: INDIO Max HR: 153 BPM 85% of Pred: 180 BPM Max BP: 222/058 mmHG Max Work Load: 12.4 METS 85% MPHR 12.4 METs, without anginal symptoms, with isolated PACs, with resting HTN and hypertensive response max BP 222/58, with horizontal depression leads 2, 3, aVF V5-V6.. Blood pressure returned to baseline. Test reviewed with Dr. Fiore Recommend stress echo for further evaluation. Referred By: Doyle Hua Overread By: Raquel Ellis
== END ==
LOC: HO.CARD 08:09
PROVIDERS: PCP Internal Medicine; Visit Provider Surgery
DX: R94.31 Abnormal electrocardiogram [ECG] [EKG] (principal); I51.7 Cardiomegaly
CPT/HCPCS: 93017

== ENCOUNTER → 2023-05-09 10:49 | Outpatient (BNV) | payer BC, SELFPAY | PROVIDERS: PCP Internal Medicine; Visit Provider Nurse Practitioner | DX: R94.31 Abnormal electrocardiogram [ECG] [EKG] (principal); I51.7 Cardiomegaly | CPT/HCPCS: 93016; 93018 ==

== ENCOUNTER → 2023-05-14 10:47 | Outpatient (REF) | payer BC, SELFPAY ==
--- NOTE | 2023-05-14 11:03 | CA_ITS ---
Transthoracic Echocardiogram Patient (Last, First, Middle): Joesph Dimas A Gender: Male Date of : 1980 Age: 42 Procedure Date: 05/14/2023 Procedure Type: Transthoracic Echocardiogram Location: OP Height: 180.34 cm Weight: 113.4 kg BSA: 2.32 m2 Heart Rate: bpm BP: 150 / 76 mmHg Meteorological Technician: ORTIZ Referring MD: Doyle Hua MD Symptoms: R94.31 - Abnormal electrocardiogram [ECG] [EKG] Study Quality: Adequate ECG Rhythm: Sinus Conclusions: - The left ventricular systolic function is normal. The visually estimated ejection fraction is between 65-70%. - There is severely increased left ventricular wall thickness. - There is severe septal asymmetric hypertrophy. - No obvious valvular pathology seen on this study. Findings Left Ventricle Normal left ventricular cavity size. There is severely increased left ventricular wall thickness. The left ventricular systolic function is normal. The visually estimated ejection fraction is between 65-70%. There is no evidence of regional wall motion abnormalities. Evidence suggests grade I (mild) diastolic dysfunction. There is severe septal asymmetric hypertrophy. Septal thickness 1.9cm. Posterior wall thickness 1.7cm. LV peak GLS -15.2%. Right Ventricle Mildly increased right ventricular cavity size. There is normal right ventricular systolic function. Atria The left atrium is mildly dilated. The right atrium is normal in size. Aortic Valve There is a normal trileaflet aortic valve. There is no aortic valve stenosis. There is no aortic valve regurgitation. Mitral Valve The mitral valve appears normal. There is no mitral valve regurgitation. There is no mitral valve stenosis. Pulmonic Valve The pulmonic valve is likely normal. Tricuspid Valve There is no tricuspid valve regurgitation. Tricuspid regurgitation envelope is inadequate for calculation of right ventricular systolic pressure. Great Vessels The asc aorta and aortic arch are normal in size. Venous The inferior vena cava is mildly dilated and collapses greater than 50% with inspiration. Pericardium/Pleural There is no evidence of pericardial effusion. Prior Study Comparison No prior study available for comparison. Recommendations, Care & Conclusions No obvious valvular pathology seen on this study. Measurements 2D Linear Measurements IVSd: 1.93 0.6-0.9/0.6-1.0 cm LVIDd: 4.38 3.9-5.3/4.2-5.9 cm LVIDd Index: 1.89 2.4-3.2/2.2-3.1 cm/m2 LVIDs: 2.60 2.0-3.6 cm LVPWd: 1.71 0.7-1.1 cm LA Diam: 4.60 2.7-3.8/3.0-4.0 cm LAIDs Index: 1.98 1.5-2.3 cm/m2 LV Mass: 449.09 67-162/88-224 g LV Mass Index: 193.58 43-95/49-115 g/m2 LVOT Diam: 2.10 3.0+(-)1.3 cm 2D Systolic Function EF 4C: 50.40 >55% EF 2C: 55.30 >55% EF BiP: 52.40 >55% Mitral Valve MV Pk E: 0.56 MV PK A: 0.69 MV Decel Time: 316.00 E/A: 0.80 E'Lateral: 7.94 E'Medial: 4.35 E/E' Med: 12.80 E/E' Lat: 7.00 PHT: 92.00 MVA PHT: 2.39 Decel [place]: 1.77 Aortic Valve AoV Pk Jerry: 1.47 AoV Mn Jerry: 1.00 AoV VTI: 0.30 AoV Pk Grad: 9.00 Aov Mn Grad: 5.00 THERESA Cont.VTI: 2.74 LVOT LVOT Pk Jerry: 1.03 LVOT Mn Jerry: 0.69 LVOT VTI: 0.24 LVOT Pk Grad: 4.00 LVOT Mn Grad: 2.00 LVOT Diam: 2.10 LVOT Area: 3.46 Diastolic Function MV Pk E: 0.56 MV Pk A: 0.69 E/A: 0.80 E'Medial: 4.35 E/E' Med: 12.80 E' Laterial: 7.94 E/E' Lat: 7.00 Right Ventricle TAPSE (mm): 20.90 TVS' Jerry: 13.20 Tricuspid Valve RA Press: 8.00 Great Vessels Aorta Sinus of Valsalva: 3.15 2.0-3.[address] [place]: 2.39 1.7-3.4 cm Ao Asc: 3.40 2.1-3.4 cm Ao Arch: 3.20 Updated in Other Vendor System with Status of Final Kwabena Reeves MD electronically signed on 05/15/2023 6:15:34 AM with status of Final
== END ==
LOC: HO.CARD 10:47
PROVIDERS: PCP Internal Medicine; Visit Provider Surgery
DX: R94.31 Abnormal electrocardiogram [ECG] [EKG] (principal); I51.7 Cardiomegaly
CPT/HCPCS: 93306; 93356

== ENCOUNTER → 2023-05-14 11:03 | Outpatient (BNV) | payer BC, SELFPAY | PROVIDERS: PCP Internal Medicine; Visit Provider Internal Medicine | DX: I51.7 Cardiomegaly (principal) | CPT/HCPCS: 93306 ==

== ENCOUNTER → 2023-05-28 09:06 | Outpatient (BNVA) | payer BC, SELFPAY | PROVIDERS: PCP Internal Medicine; Visit Provider Surgery ==

== ENCOUNTER → 2023-07-15 10:46 | Outpatient (REF) | payer BC, SELFPAY ==
--- NOTE | 2023-07-15 10:50 | CA_ITS ---
Acquisition Time: 2023-07-15 10:45:07 Total Exercise Time: 00:12:04 Test Indications: Abnormal Treadmill Test Medications: CARVEDILOL LISINOPRIL NIFEDOPINE Protocol: INDIO Max HR: 144 BPM 80% of Pred: 179 BPM Max BP: 210/100 mmHG Max Work Load: 13.7 METS Exercise stress test exercise 12 min 4 sec of [place] protocol.achieving 80% MPHR and 13.4 METS, without anginal symptoms, without arrhythmias, with resting HTN, Max BP 210/100, with downsloping leads 2, 3, aVF, V4-V6 suggestive of ischemia. Echo images obtained by [facility] at rest and immediately post peak exercise,. Definity contrast used. Test reviewed with Dr. Reeves, Referred By: Doyle Hua Overread By: Raquel Ellis
== END ==
LOC: HO.CARD 10:46
PROVIDERS: PCP Internal Medicine; Visit Provider Surgery
DX: I51.7 Cardiomegaly (principal); R93.1 Abnormal findings on diagnostic imaging of heart and coronary circulation
CPT/HCPCS: 93350; Q9957

== ENCOUNTER → 2023-07-15 10:50 | Outpatient (BNV) | payer BC, SELFPAY | PROVIDERS: PCP Internal Medicine; Visit Provider Nurse Practitioner | DX: I10 Essential (primary) hypertension (principal); R93.1 Abnormal findings on diagnostic imaging of heart and coronary circulation | CPT/HCPCS: 93016; 93018; 93350; 93352 ==

== ENCOUNTER 2023-07-25 08:30 | Outpatient (AMB) | payer BC, SELFPAY ==
--- NOTE | 2023-07-25 08:39 | A.OFFVIS_ITS ---
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 Echocardiogram shows severe left ventricular hypertrophy consistent with hypertensive heart disease. He has prior history of morbid obesity for which he has started following with Dr. Hua and has lost weight. He has been exercising said he now walks 5 miles every day. He has been pushing to exercise and wanting to start to run but was told not to push because of his stress test results reviewed a stress test results he performed at very high workload but had mild hypertensive blood pressure response with positive EKG changes although stress echocardiogram was negative for ischemia. He did not have any significant diastolic dysfunction pulmonary hypertension with exercise as well. Echocardiogram shows severe left ventricular hypertrophy with normal LV ejection fraction with severe asymmetric septal hypertrophy without obstructive physiology. He says he has had hypertension since age of 18 but he was markedly overweight, has family history of hypertension on his mother's side. He was treated initially but then he lost a bunch of weight up to 180 lb in his blood pressure improved. However he gradually gained weight back in his blood pressure came back. He is currently on 3 medications seems to think that the blood pressure is better controlled although he does not monitor his blood pressure on a regular basis. He has been advise sleep study but has not gone through with it. He comes here for further evaluation of his abnormal echocardiogram finding and hypertension and preoperative cardiovascular risk stratification. He says that he exercises regularly and has no chest pain or shortness of breath. Denies any heart failure symptoms. He is scheduled to undergo bariatric surgery in the near future although date is not been set. 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 Review of Systems Const Denies chills, Denies fatigue, Denies fever(s), Denies frequent falls, Denies weakness, Denies weight gain and Denies weight loss Eyes Denies loss of vision ENT Denies dizziness Card Denies chest pain, Denies leg edema, Denies lightheadedness, Denies palpitations, Denies dyspnea, Denies dyspnea on exertion, Denies orthopnea and Denies other (loss of consciousness) Resp Denies cough, Denies dyspnea, Denies dyspnea on exertion and Denies wheezing GI Denies hematochezia and Denies change in stool character Denies dysuria and Denies urinary frequency Musc Denies abnormal gait, Denies muscle weakness, Denies numbness, Denies radiating pain into limb and Denies tingling Skin/Breast Denies nail changes and Denies rash Neuro Denies abnormal gait, Denies dizziness, Denies frequent falls, Denies loss of vision, Denies memory loss, Denies numbness, Denies tingling and Denies weakness Psych Denies depression and Denies memory loss Endo Denies fatigue and Denies palpitations Matthew/Lymph Reports easy bruising and Reports other (anemia) Aller/Immun Denies wheezing Physical Exam Vital Signs: Last Vital Signs Pulse 64 07/25/23 08:40 BP 122/80 07/25/23 08:40 BMI result Body Mass Index 37.7 Const General: cooperative, comfortable, no acute distress, well developed, alert, awake and Physically active Nutritional Appearance: well nourished and obese Orientation/consciousness: patient oriented x3 Limitations: no limitations HEENT Head: Yes normocephalic and Yes atraumatic Neck Neck: Yes trachea midline, Yes supple and Yes no JVD Resp Effort & Inspection: normal respiratory effort Auscultation: clear to auscultation bilaterally Cardio Jugular venous distension: no JVD Palpation: normal PMI Rate: regular rate Rhythm: regular rhythm Heart sounds: S1 normal heart sound present, S2 normal heart sound present, no click, no gallops, no murmurs and no rubs GI Auscultation: normal bowel sounds Skin General skin exam: no rashes or lesions noted Neuro General: patient oriented x3 and no focal motor deficits Extrem General: Yes no clubbing, cyanosis or edema Psych Appearance: grossly normal Office Procedures EKG Details: EKG shows normal sinus rhythm nonspecific ST T wave changes suggestive of repolarization abnormality [id number], Complete Assessment & Plan Assessment & Plan (1) Hypertensive heart disease: Code(s): I11.9 - Hypertensive heart disease without heart failure Category: Medical Plan: Hypertensive heart disease in this young male with longstanding history of hypertension as well as morbid obesity. LVH could be most likely related to hypertension. Underlying sleep apnea needs to be ruled out. LVH could also be related to his obesity. I think he definitely will benefit from weight loss program. He is looking forward to undergoing surgical weight loss approach. H owever I discussed with him the importance of lifestyle modification and maintaining weight loss is also equally as important. Today his blood pressure is well controlled although he does have hypertensive blood pressure response to exercise which is not unusual also however he might have blood pressure elevation other times of the day. Have therefore advised him to start monitoring blood pressure at different times a day and maintain a log. Further treatment of hypertension based on this findings. I have advised him to drop of the log in 2 months time. Extremely important to manage his hypertension was discussed with him. Discussed with him about pathophysiology of hypertensive heart disease and possibility of developing heart failure syndrome. He understands agrees and is very motivated in terms of avoiding that. I have advised him to avoid salt loading. Also advised him to drink adequate fluids. Advised to participate in regular physical activity and advised to call me with any new symptoms. Will continue to follow him in the clinic every year. Given his hypertensive response to exercise I have advised him to avoid reaching maximum effort but continue pursue exercise to at least moderate effort to overall continue to maintain healthy heart lifestyle. (2) Preop cardiovascular exam: Code(s): Z01.810 - Encounter for preprocedural cardiovascular examination Category: Medical Plan: Preop cardiovascular risk stratification in this young male to undergo bariatric surgery which is considered intermediate risk surgery with negative stress echocardiogram at high workload with findings of hypertensive heart disease w ithout signs or symptoms of congestive heart failure. He is currently optimized to undergo the surgery with low risk for perioperative cardiovascular morbidity mortality. Continue all his blood pressure medications in the perioperative time. Eventually once he goes to surgery and loses significant amount of weight, may need readjustment of his blood pressure medication with the blood pressure starts trending downward. He understands and agrees. Will follow up in the clinic in 1 year's time, sooner p.r.n.. Thank you for allowing me to partake in his care Coding Level of Care Code New Pt Level 4 (94732) Diagnoses Hypertensive heart disease I11.9 Preop cardiovascular exam Z01.810 CPT Codes EKG - CPT: 55360-[id number], Complete ([id number])
[2023-07-25 08:40] VITALS: BP 122/80; PULSE 64; BMI 37.7
== END 2023-07-25 09:09 | disposition home or self-care (01) ==
PROVIDERS: PCP Internal Medicine; Visit Provider Internal Medicine Cardiovascular Disease
DX: I11.9 Hypertensive heart disease without heart failure (principal); Z01.810 Encounter for preprocedural cardiovascular examination
CPT/HCPCS: 93010; 99214

== ENCOUNTER → 2023-07-25 08:30 | Outpatient (BNVA) | payer BC, SELFPAY | PROVIDERS: PCP Internal Medicine; Visit Provider Internal Medicine Cardiovascular Disease | DX: Z01.810 Encounter for preprocedural cardiovascular examination (principal); I11.9 Hypertensive heart disease without heart failure | CPT/HCPCS: 93005 ==

== ENCOUNTER 2023-08-22 08:06 | Outpatient (AMB) | payer BC, SELFPAY ==
--- NOTE | 2023-08-20 22:56 | MHC.OFFVISWM ---
VS Expanded 08/20/23 22:57 Height 5 ft 10.5 in Weight 252 lb 6 oz BMI 35.7 Body Fat % 35.1 Body Fat Mass 88.6 Fat Free Mass 164 Visceral Fat Rating 18 Body Water % 46.9 Body Water Mass 118.4 Basal Metabolic Rate/Score 164 Intake Visit Reasons: TV Pre Op LSG 09/03/23 Allergies No Known Allergies [No Known Allergies*] Allergy (Verified 08/20/23 22:59) Medication List - Last Reconciled 08/20/23 by Doyle Hua MD carvedilol 6.25 mg PO DAILY lisinopril 40 mg PO DAILY multivitamin 1 tab PO DAILY nifedipine ER 60 mg PO DAILY omega 5-fcd-ptw-fish oil 300-1,000 mg (Fish Oil) 1 cap PO DAILY ondansetron 4 mg PO Q6H PRN pantoprazole 40 mg PO DAILY polyethylene glycol 3350 17 grams PO DAILY sucralfate 10 mL PO BID HPI HPI TV Pre Op LSG 09/03/23: Details: Start time: 2.30m, End time: 3pm ?I spent 25 minutes speaking with the patient on the phone plus an additional 5 minutes reviewing and updating records for a total of 30 minutes HPI Comments Details: Overall weight loss: 28bs, or 9.98% TBWL Is doing 2 Celebrate Rebuild protein shakes (2 scoops in 12oz almond milk), one Celebrate protein bar and a meal (8 forks of protein and 8 forks of salad or vegetables) Exercise: doing Peloton bike x2/week for 450 calories and walking outside x 3/week for 750 calories 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 Physical Exam Vital Signs: BMI result Body Mass Index 35.7 Telehealth Telehealth Telehealth Platform: Telephone Location of provider rendering services: practice address Location of patient: address on file Patient Identification confirmed using: Name, : Yes Telehealth method: voice only Patient verbally consented to treatment: Yes Patient verbally consented to billing insurance company: Yes Patient informed of any privacy concerns related to visit: Yes Minutes spent on Phone/Video with Pt.: 30 Assessment & Plan Assessment & Plan (1) Obesity: Code(s): E66.9 - Obesity, unspecified Category: Medical Qualifiers: Body mass index: BMI 35.0-35.9 Obesity classification: adult class 2 (BMI 35 - 39.9) Obesity type: due to excess calories Serious obesity comorbidity presence: with serious comorbidity Qualified Code(s): E66.01 - Morbid (severe) obesity due to excess calories; Z68.35 - Body mass index [BMI] 35.0-35.9, adult Plan: 1. Plan for lap sleeve gastrectomy including upper GI endoscopy. All tests has been completed and reviewed and the patient is cleared for the surgery. ?If diaphragmatic or ventral hernias are present at time of surgery, these will be repaired laparoscopically as well. Risks and complications were discussed in detail including possible conversion to an open procedure, anastomotic leak, bleeding requiring transfusion, small bowel obstruction, , DVT and pulmonary embolism, cardiac, or pulmonary complications, as long term care social worker complications such as anastomotic ulcer, insufficient weight loss and vitamin deficiencies. I emphasized the importance of close follow-up, adherence to instructions and good communication. So far he has proven to be an excellent communicator and very compliant with all our directions accomplishing a great weight loss. I believe that he is an excellent candidate and he is ready. 2. Preop prescriptions were provided and explained the purpose of each one. Need to be purchased preop. Start Pantoprazole now as you get it from the pharmacy, 1 pill per day. Sucralfate and Zofran are for after surgery as needed. 3. Bowel prep: please do 7 packets ?of Miralax mixing each one with a an 8oz glass of water, crystal light, gatorade zero, or propel ?on 09/02/23 and the same amount on 09/03/23. The Miralax you begin with one packet at a time in 8oz water or crystal light, gatorade zero, or propel ?as early in the day as you can and you do them back to back until you finish them. Continue the protein shakes during? the bowel prep. 4. Needs to purchase 1oz medicine cups . 5. Needs to purchase Children's liquid Tylenol for postop pain control. 6. Avoid aspirin, motrin, Advil, Aleve, Ibuprofen, Naproxyn. Tylenol is OK. 7. He needs to purchase the Celebrate 4:1 protein shakes from the hospital's gift shop. 8. Will do basic preop blood work-up any day between Friday08/25/23 and Friday08/29/23 fasting for 12 hours and is scheduled to see the Anesthesiologist prior to the day of surgery. 9. Importance of adherence to postop folllow-up and recommendations was underscored and he understands that. 10. Stop food and bars as of Friday08/22/23 and continue with 2 Celebrate Rebuild protein shakes (ONE scoop EACH in 8oz almond milk) at 8am-10am and 11am-1pm and THREE more Celebrate Rebuild protein shakes with TWO scoops EACH in 8oz of almond milk at 2pm-4pm, 5pm-7pm and 8pm-10pm 11. No soups, broths or V8 12. The patient's?medical?history has been reviewed and they are considered low risk for post op DVT and therefore DVT prophylaxis is not considered necessary. Travel after surgery was reviewed. The patient has not disclosed any travel plans during the first 30 days after surgery and they have been advised that within the first 30 days after surgery any bus, plane, train or car travel over 2 hours in duration is contraindicated due to the possibility of developing blood clots from immobility. Any travel, needs to include periods of ambulation of 10 minutes in duration every 2 hours.? Patient was instructed to discuss any plans for travel during this period with their bariatric surgeon.? 13. As of tomorrow, measure your blood pressure every morning and if the blood pressure is: Below 120/70: take only HALF Carvedilol pill 121/71 to 130/80: take HALF Carvedilol and HALF Nifedipine pill 131/81 to 140/90: take HALF Carvedilol, HALF Nifedipine and HALF Lisinopril pill Over 141/91: take one Carvedilol, one Nifedipine and one Lisinopril Take these medications at the day of surgery if your blood pressure falls within the above parameters. 14. Absolutely no smoking or vaping, or marijuana until the surgery and for at least the first 4 weeks. Only nicotine patches are allowed. 15. Send me weight measurements tomorrow 08/21/23, next Friday08/27/23 and then on Friday09/02/23, the day of surgery before you go to the hospital. 16. Avoid any steroids by mouth for any reason. Let me know if someone prescribes them to you 17. These instructions supersede anything else you read in the handbook, anything you watched in videos or classes or you were told by any other provider. If there is any conflict, you follow the above instructions and nothing else. Orders: Orders TSH reflex Free T4 08/20/23 E66.9 - Obesity, unspecified Prothrombin Time INR 08/20/23 E66.9 - Obesity, unspecified C Reactive Protein 08/20/23 E66.9 - Obesity, unspecified Comprehensive Met. Panel 08/20/23 E66.9 - Obesity, unspecified Complete Blood Count Auto Diff 08/20/23 E66.9 - Obesity, unspecified Type and Screen 08/20/23 E66.9 - Obesity, unspecified Partial Thromboplastin Time 08/20/23 E66.9 - Obesity, unspecified Lipid Panel 08/20/23 E66.9 - Obesity, unspecified Hemoglobin A1c 08/20/23 E66.9 - Obesity, unspecified Insulin 08/20/23 E66.9 - Obesity, unspecified Medications: New polyethylene glycol 3350 Mix each measuring cup with 8oz of water, Crystal light, or Gatorade zero, or Propel and do 7 measuring cups on 09/01/23 and another 7 measuring cups on 09/02/23 17 grams PO DAILY 238 grams 0RF Z01.818 - Encounter for other preprocedural examination pantoprazole 40 mg PO DAILY 90 tabs 0RF K21.9 - Gastro-esophageal reflux disease without esophagitis sucralfate 10 mL PO BID 600 mL 2RF K21.9 - Gastro-esophageal reflux disease without esophagitis ondansetron Only take one every 12 hours as needed if you have nausea 4 mg PO Q6H PRN 20 tabs 0RF nausea and vomiting R11.0 - Nausea
[2023-08-20 22:57] VITALS: BMI 35.7
== END 2023-08-22 21:40 | disposition home or self-care (01) ==
LOC: HO.HBS 08:06
PROVIDERS: PCP Internal Medicine; Visit Provider Surgery
DX: E66.01 Morbid (severe) obesity due to excess calories (principal); Z68.35 Body mass index [BMI] 35.0-35.9, adult
CPT/HCPCS: 99499

== ENCOUNTER → 2023-08-22 08:06 | Outpatient (BNVA) | payer BC, SELFPAY | PROVIDERS: PCP Internal Medicine; Visit Provider Surgery | DX: E66.9 Obesity, unspecified (principal); K21.9 Gastro-esophageal reflux disease without esophagitis; R11.0 Nausea; Z01.818 Encounter for other preprocedural examination ==

== ENCOUNTER 2023-08-29 06:46 | Outpatient (REF) | payer BC, SELFPAY ==
[2023-08-29 07:22] LABS: MANUAL DIFF FLAG NO
[2023-08-29 08:00] LABS: Basophils Percent Auto 0.4 % (0-2); Eosinophils Absolute Auto 0.1 X10*3/uL (0.0-0.4); Hematocrit 43.5 % (42.0-52.0); Hemoglobin 14.7 g/dl (14.0-18.0); Imm Gran Abs Auto 0.02 X10*3/uL (0.00-0.03); Imm Gran Pct Auto 0.3 % (0.0-0.4); Lymphocytes Absolute Auto 1.9 X10*3/uL (1.2-4.9); Lymphocytes Percent Auto 28.3 % (20-40); Mean Corpuscular HGB Conc 33.8 g/dl (31.0-36.0); Mean Corpuscular Hemoglobin 28.3 pg (27.0-33.0); Mean Corpuscular Volume 83.7 fL (80.0-98.0); Mean Platelet Volume 9.6 fL (9.4-12.4); Monocytes Absolute Auto 0.5 X10*3/uL (0.1-1.2); Monocytes Percent Auto 6.8 % (2-11); Neutrophils Absolute Auto 4.3 x10*3/uL (2.0-8.3); Neutrophils Percent Auto 63.2 % (45-73); Platelet Count 225 X10*3/uL (160-400); Red Cell Distribution Width 12.8 % (11.0-16.0); White Blood Count 6.8 X10*3/uL (4.8-10.8)
[2023-08-29 08:05] LABS: Prothrombin Time 12.1 SEC (11.1-13.3)
[2023-08-29 08:08] LABS: Partial Thromboplastin Time 31.1 SEC (26.0-36.8)
[2023-08-29 08:32] LABS: Estimated Average Glucose 100 mg/dL; Hemoglobin A1c % 5.1 % (<6.0)
[2023-08-29 08:44] LABS: Alanine Aminotransferase 16 U/L (0-40); Albumin Level 4.1 g/dL (3.5-5.0); Alkaline Phosphatase 69 U/L (39-117); Anion Gap 11 (12-20); Aspartate Amino Transferase 18 U/L (5-37); Bilirubin Total 0.5 mg/dL (0.0-1.0); Blood Urea Nitrogen 16 mg/dL (9-16); Calcium 9.2 mg/dL (8.4-10.2); Carbon Dioxide 25 mmol/L (22-29); Chloride 109 mmol/L (96-108); Cholesterol 123 mg/dL (<200); Estimated Glomerular Filt Rate > 60; Glucose Random 111 mg/dL (60-115); HDL Cholesterol 29 mg/dL (>40); LDL Cholesterol Calculated 81 mg/dL (<100); Potassium 3.5 mmol/L (3.3-5.1); Sodium 141 mmol/L (135-145); Total Protein 7.4 g/dL (6.5-8.0); Triglycerides 65 mg/dL (<150)
[2023-08-29 08:54] LABS: Insulin 9 uU/mL (2-29); TSH reflex Free T4 0.73 uIU/mL (0.32-4.0)
== END 2023-08-29 06:47 | disposition home or self-care (01) ==
LOC: HO.LAB 06:46
PROVIDERS: Visit Provider Surgery
DX: E66.9 Obesity, unspecified (principal)
CPT/HCPCS: 36415; 80053; 80061; 83036; 83525; 84443; 85025; 85610; 85730; 86140

== ENCOUNTER 2023-09-03 05:46 | Inpatient (IN) | payer BC, SELFPAY ==
[2023-08-28 12:57] VITALS: BMI 35.1
--- NOTE | 2023-09-01 12:05 | P.CONAN_ITS ---
Documented by User: Hollie Ferrer NP 09/01/23 12:14 HPI - Anesthesia Eval Consult details Narrative: 43yo M for Gastrectomy Sleeve,possible diaphragmatic,possible ventral hernia,possible open Cardiac optimized (eval'd for severe LVH on ECHO) [facility] Active Problems Active Problems: All Active Problems Obesity (Acute) Preop cardiovascular exam (Acute) Hypertensive heart disease (Acute) Abnormal echocardiogram (Acute) LVH (left ventricular hypertrophy) (Acute) Abnormal EKG (Acute) Obesity (BMI 30-39.9) (Acute) Adjustment disorder, unspecified (Acute) Hypertension (Acute) Morbid obesity (Acute) Past Medical History Medical History Hyperlipidemia HTN (hypertension) Arthritis Family History Family History Sister Breast cancer in situ Brain cancer Surgical History Surgical History H/O wisdom tooth extraction Social History Social History (Updated 09/03/23 @ 09:48 by Maura Chand MD) Household Members: Family Household Members Other:: brother Are you a primary critical care clinical nurse specialist to a significant other at home: No Do you presently have visiting nurse or other home services: No Alcohol intake: current Alcohol intake frequency: does not drink Alcohol type: hard liquor Patient Tobacco Use Status: Never used Tobacco Substance Use Type: Marijuana Current occupational status: employed 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 Allergies Allergy/AdvReac Type Severity Reaction Status Date / Time No Known Allergies Allergy Verified 09/03/23 06:31 [No Known Allergies*] Home Medications ?Medication ?Instructions ?Recorded ?Confirmed ?Last Taken ?Type multivitamin 1 tab PO DAILY 05/29/22 08/28/23 09/02/23 History omega 3-qhu-sij-fish oil 300 1 cap PO DAILY 05/29/22 08/28/23 09/02/23 History mg-1,000 mg capsule (Fish Oil) lisinopril 40 mg tablet 40 mg PO DAILY 06/06/22 09/03/23 09/03/23 History carvedilol 6.25 mg tablet 6.25 mg PO BID 04/09/23 09/03/23 09/03/23 History nifedipine 60 mg tablet,extended 60 mg PO DAILY 04/09/23 09/03/23 09/03/23 History release Exam Height,Weight and Vital Signs: Height 5 ft 11 in Weight 114.305 kg Pertinent Lab Results Pertinent Lab Results: Laboratory Tests 08/29/23 07:12 Blood Type A Positive Antibody Screen NEGATIVE Laboratory Tests 08/29/23 07:18 WBC 6.8 Hgb 14.7 Hct 43.5 Plt Count 225 Sodium 141 Potassium 3.5 Chloride 109 H Carbon Dioxide 25 BUN 16 Creatinine 1.28 Narrative Narrative: EKG 07/2023 normal sinus rhythm nonspecific ST T wave changes suggestive of repolarization abnormality Stres ECHO 06/2023 Protocol: MICAH Max HR: 144 BPM 80% of Pred: 179 BPM Max BP: 210/100 mmHG Max Work Load: 13.7 METS Exercise stress test exercise 12 min 4 sec of Micah protocol.achieving 80% MPHR and 13.4 METS, without anginal symptoms, without arrhythmias, with resting HTN, Max BP 210/100, with downsloping leads 2, 3, aVF, V4-V6 suggestive of ischemia. Echo images obtained by tech at rest and immediately post peak exercise,. Definity contrast used. Test reviewed with Dr. Reeves, Exercise stress echocardiogram was reviewed. At rest, there is normal LVEF and wall motion. With peak exercise, there is appropriate augmentation of wall thickening and contractility. There is normal decrease in end systolic volumes. There is also no evidence of exercise induced diastolic dysfunction or pulmonary hypertension. Overall, normal study. ECHO 04/2023 Conclusions: - The left ventricular systolic function is normal. The visually estimated ejection fraction is between 65-70%. - There is severely increased left ventricular wall thickness. - There is severe septal asymmetric hypertrophy. - No obvious valvular pathology seen on this study. Assessment and Plan Assessment Anesthesia Assessment: Chart Reviewed Documented by User: Maura Chand MD 09/03/23 09:51 HPI - Anesthesia Eval Consult details Narrative: 43yo M for EGD, Laparoscopic Sleeve Gastrectomy, possible diaphragmatic hernia repair, possible ventral hernia repair, possible open Cardiac optimized (eval'd for severe LVH on ECHO) [facility] Active Problems Active Problems: All Active Problems Preop cardiovascular exam (Acute) Hypertensive heart disease (Acute) Abnormal echocardiogram (Acute) LVH (left ventricular hypertrophy) (Acute) Abnormal EKG (Acute) Obesity BMI 35.3 Adjustment disorder, unspecified (Acute) Hypertension (Acute) Morbid obesity (Acute) Past Medical History Medical History Hyperlipidemia HTN (hypertension) Arthritis Family History Family History Sister Breast cancer in situ Brain cancer Family history of problems with anesthesia: No Surgical History Surgical History H/O wisdom tooth extraction History of Problems with Anesthesia: No (Never had general anesthesia ) Social History Social History (Updated 09/03/23 @ 09:48 by Maura Chand MD) Household Members: Family Household Members Other:: brother Are you a primary critical care clinical nurse specialist to a significant other at home: No Do you presently have visiting nurse or other home services: No Alcohol intake: current Alcohol intake frequency: does not drink Alcohol type: hard liquor Patient Tobacco Use Status: Never used Tobacco Substance Use Type: Marijuana Current occupational status: employed 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 Allergies Allergy/AdvReac Type Severity Reaction Status Date / Time No Known Allergies Allergy Verified 09/03/23 06:31 [No Known Allergies*] Home Medications ?Medication ?Instructions ?Recorded ?Confirmed ?Last Taken ?Type multivitamin 1 tab PO DAILY 05/29/22 08/28/23 09/02/23 History omega 3-bqd-ffw-fish oil 300 1 cap PO DAILY 05/29/22 08/28/23 09/02/23 History mg-1,000 mg capsule (Fish Oil) lisinopril 40 mg tablet 40 mg PO DAILY 06/06/22 09/03/23 09/03/23 History carvedilol 6.25 mg tablet 6.25 mg PO BID 04/09/23 09/03/23 09/03/23 History nifedipine 60 mg tablet,extended 60 mg PO DAILY 04/09/23 09/03/23 09/03/23 History release Exam Height,Weight and Vital Signs: Height 5 ft 11 in Weight 114.305 kg Vital Signs Temp Pulse Resp BP Pulse Ox O2 Del Method 09/03/23 06:28 97.4 F 58 16 155/91 H 96 Room Air Airway Mallampati Class: II TM Dist: >3cm Neck ROM: Full Loose/Missing/Broken Teeth: Yes (Missing molars. Denies broken or loose teeth) Heart: RRR Lungs: CTAB Assessment and Plan Assessment Anesthesia Assessment: Anesthesia Plan Discussed and Chart Reviewed Final Anesthetic Review Family History of Problems with Anesthesia: No History of Problems with Anesthesia: No (Never had general anesthesia ) NPO: Yes ASA Class: III Final Preanesthetic Review: No Changes in Pt Med Stat, Meds/Allgs Chart Reviewed, Consent Obtained/Reviewed and Anes Risks/Benef Reviewed Patient Risk: Intermediate Procedure Risk: Intermediate Assessment/Block/Sedation in SS: Assess/Block/Sedation-SS Anesthetic Plan Anesthetic Plan: GA Disposition: Standard PACU and Inp. Admit - Standard Bed
[2023-09-03] VITALS (20 sets, daily range): BP systolic 128–171; BP diastolic 74–98; PULSE 57–74; RESP 16–18; TEMP 36.1–36.8; O2SAT 94–99; BMI 35.3
[2023-09-03] MEDS: Lactated Ringers 1,000 ML 999 ML IV (06:34)
[2023-09-03] MEDS: Lactated Ringers 1,000 ML 100 ML IVCONT ×2 (06:35→13:36)
[2023-09-03] MEDS: Aprepitant 32 MG/4.4 ML VIAL IVPUSH (06:35)
--- NOTE | 2023-09-03 07:34 | P.BOP_ITS ---
Brief Operative Note Date of Service: 09/03/23 Pre-op diagnosis: Severe obesity with comorbidities (see below) Procedure: INITIAL PATIENT BMI ON PRESENTATION AT OUR OFFICE: 39.7 kg/m2 LAST BMI BEFORE SURGERY: 35.3 kg/m2 COMORBIDITIES: hyperlipidemia, hypertension, loiver fibrosis, LVH ?The patient presented to the Weight Management Program with significant obesity that was negatively impacting the patient's comorbidities as listed above.? The program is a phased program with a special focus on preoperative medical weight management to promote substantial weight loss and prepare the patients for the second phase of the program: bariatric surgery. The patient participated in an intensive weekly lifestyle ?intervention and exercise program during which the patient ?has lost between the initial office visit and the last preoperative visit 28.6lbs, or 10.2% of initial actual body weight. It was deemed appropriate for the patient to now have bariatric surgery. In light of the current Covid-19 pandemic and the well documented strong association of obesity and increased risk of worse outcomes if infected with Covid-19 (REFERENCES: https://pubmed.ncbi.nlm.nih.gov/97807669/ ,? https://pubmed.ncbi.nlm.nih.gov/15546146/ ), any delay in undergoing bariatric surgery may lead to the patient's worsening health condition and increased?risk of more severe Covid-19 disease if infected. In addition a recent?study from [facility] published in [employer] on 03/12/2021 ([email or web address]) found that, among patients with obesity, substantial weight loss achieved with surgery was associated with improved outcomes of COVID-19 infection. The findings suggest that obesity can be a modifiable risk factor for the severity of COVID-19 infection. In addition, the patient met the BMI-criteria for bariatric surgery based on the BMI on initial presentation. The patient should not be penalized for achieving such weight loss because ?it is not sustainable long-term without surgical intervention and it was achieved in preparation for bariatric surgery ?under my direction and based on my published research ([email or web address]).pdf and? https://www.soard.org/article/I1524-9291(33)44778-X/pdf ) ?that a 10% preoperative weight loss improves long-term weight loss after surgery and r educes perioperative complications.? Insurance carriers such as [facility] have endorsed my recommendations ?and have included in their policies criteria to include a 10% preoperative weight loss requirement. PROCEDURE: Esophago-gastroscopy, laparoscopic sleeve gastrectomy and laparoscopic gastropexy INDICATIONS: This is a 43 year-old male who was electively scheduled for laparoscopic, possibly open sleeve gastrectomy. The risks and complications of the procedure were discussed with the patient in advance, particularly the possibility of ; pulmonary embolism; staple line leak; bleeding; GERD; cardiac, pulmonary, or renal complications; as well as long-term problems such as insufficient weight loss, vitamin deficiency, strictures, or ulcers. The patient understood all the risks, and was in agreement to proceed with surgery. DESCRIPTION OF PROCEDURE: After informed consent was obtained from the patient, the patient was given preoperative antibiotics, and was transferred to the operating room. After successful induction of general anesthesia, pneumatic compression devices were placed on both lower extremities. An upper endoscopy was performed next. The oropharynx and esophagus appeared to be within normal limits. There was a diaphragmatic hernia present of moderate size consistent with the findings of the preoperative upper GI. The stomach was entered. Then after all fluid and air were suctioned and the stomach was fully decompressed, the scope was withdrawn and secured in the mid esophagus. The patient was then prepped and draped in the usual sterile manner, and abdominal access was established at the right upper quadrant with the Ja technique. A 12 mm blunt port was inserted, and the abdomen was insufflated with CO2 to a pressure of 15 mmHg. Under direct visualization, additional ports were placed, specifically two 5 mm Versi-step ports to the left upper quadrant, and a 5 mm Versi-Step port to the right upper quadrant. 1% lidocaine plain was used to infiltrate all port sites as well as all fascia defects. Following that, the patient was placed in a steep reverse Trendelenburg position. An additional 5 mm port was placed to the right flank for the Mediflex retractor that was used to retract the left lobe of the liver. The gastro-esophageal fat pad was opened with the ultrasonic device (Thsalomeerbeat, Olympus) and the anterior esophagus and hiatus were exposed. The angle of His was opened with the ultrasonic device the fundus of the stomach from any diaphragmatic and splenic attachments. I then opened the gastrocolic ligament between the transverse colon and the greater curvature of the stomach with the ultrasonic device to enter the lesser sac and facilitate the ligation of the short gastric vessels. I started at a mid-point along the greater curvature and using the Thunderbeat, all short gastric vessels were divided all the way to the angle of His until the left edenilson was completely dissected at its entirety. I then divided the gastro-colic ligament distally to a distance of about 3-4 cm proximal to the pylorus.? The stomach was then divided transversely with three Endo LAURA-45 purple and four LAURA-60 articulating purple loads using the Fit&Color stapler and loads. Every effort was made that the gastric sleeve had a tubular shape and an even caliber throughout. Once the sleeve resection was completed, the staple line of the g astric sleeve was reinforced with Hemoclips. The resected stomach was retrieved without difficulty from the Ja port. A gastropexy was then performed in order to prevent postoperative GERD and pa rtial gastric volvulus. Several interrupted 2.0 Surgidac sutures were placed between the sleeve's staple line and the previously divided greater omentum and gastro-colic ligament using the Endo-Stitch device. ?An upper endoscopy was performed. There was no narrowing at the GE junction. The scope was easily advanced all the way to the pylorus which was clearly visualized. There was no narrowing anywhere and the sleeve's caliber was even throughout. The sleeve's staple line was inspected and there was no evidence of ischemia, bleeding or dehiscence. At that point the gastroscope was withdrawn f rom the patient?s mouth while we were decompressing the bowel and the stomach from any remaining air. I looked into the lesser sac to see how the sleeve was situating and it was situating well. There was no bleeding from the staple line, spleen, or short gastric vessels. The Mediflex retractor was removed, and the undersurface of the liver was inspected and there was no bleeding. The patient was placed in supine position. I closed the fascial defect of the 12 mm port site with a figure of eight #1 Polysorb suture. Then 30cc Ropovacaine plain with 10 mg of Dexamethasone were used to infiltrate the fascial closure as well as all skin incisions. A total of 5ml of Zynrelef was applied in the Ja wound. At this point, the abdomen was deflated, all ports were removed under direct vision, and no bleeding was noted from any of the port sites. The skin incisions were irrigated with saline and were closed with 4-0 absorbable monofilament sutures. Steri-Strips and OpSites were used to cover all incisions. The patient was extubated and was transferred in stable condition to the recovery room for further care. I was present and performed all weathers parts of the procedure. Lutz was the rst media assistant. There were no residents to assist with this case. Tre Hua MD, PhD, FACS Surgeon: Doyle Hua MD Anesthesia: GETA, local and other (TAP block and 5ml Zynrelef) Was an Software Engineering Associate Manager used for this Procedure?: No Software Engineering Associate Manager: Michael Lutz Estimated blood loss (mL): 10 IV fluids (mL): 2,000 Urine output (mL): 0 (No Hoover to record output) Pathology: other (Stomach) Condition: stable Disposition: PACU
--- NOTE | 2023-09-03 07:34 | MHC.SHP ---
Pre-Procedural Eval Section A - 24 Hr Update-Section A only Date of Service: 09/03/23 The patient is an INPATIENT: Yes The patient has been examined within 24 hours of the surgical procedure. The History & Physical has been completed within 30 days and I have reviewed it.: No Section B - Complete if H&P > 30 days Chief Complaint: Obesity Relevant Family History (Specify if Yes): No Relevant Social History: None Present Medications: None Medical History: No relevant PMH History of Previous Operations: No relevant previous surgery Allergies: Allergies Allergy/AdvReac Type Severity Reaction Status Date / Time No Known Allergies Allergy Verified 09/03/23 06:31 [No Known Allergies*] Review of Systems Sugical H&P ROS: Negative: Constitution, Cardiovascular, Respiratory, Neurological, Psychiatric, Hem-Onc, Allergic/Immunologic, Gastrointestinal, Genitourinary, Musculoskeletal, Integumentary, Endocrine and Eyes/Ears/Nose/Throat Exam Surgical H&P Exam: Normal: HEENT, Normal: Heart, Normal: Lungs, Normal: Extremities, Normal: Abdomen, Normal: Skin and Normal: Neurological Plan Diagnosis/Plan: Unchanged I have reviewed the history and physical and performed a pertinent physical examination on my patient. No changes have occurred unless specified. Time Spent With Patient Time: Total time managing care of this patient today ____ minutes.
--- NOTE | 2023-09-03 07:38 | P.PNGS_ITS ---
Subjective Subjective Date of Service: 09/04/23 Interval history: Feels well. Mild incisional pain. He is tolerating phase 1 bariatric diet Physical Exam 2 Vital Signs: Vital Signs: Last Vital Signs Temp 97.4 F 09/03/23 06:28 Pulse 58 09/03/23 06:28 Resp 16 09/03/23 06:28 BP 155/91 H 09/03/23 06:28 Pulse Ox 96 09/03/23 06:28 O2 Del Method Room Air 09/03/23 06:28 BMI result Body Mass Index 35.3 GI: Inspection: Yes normal to inspection, Yes incision (clean, dry and intact) and Yes obesity Palpation (GI): Soft to palpation Extrem: Right lower extremity: normal to inspection (no calf tenderness) L eft lower extremity: normal to inspection (no calf tenderness) Objective Data Active Medications Lactated Ringer's (Lr) 1,000 mls @ 100 mls/hr IVCONT .Q10H COUNT INCLUDES THE [facility] Last Admin: 09/03/23 06:35 Dose: 100 mls/hr Documented By: SMITHA Lactated Ringer's (Lr) 1,000 mls @ 999 mls/hr IV .Q1H1M COUNT INCLUDES THE [facility] Stop: 09/03/23 08:00 Last Admin: 09/03/23 06:34 Dose: 999 mls/hr Documented By: SMITHA Labs 09/04/23 05:21 09/04/23 05:21 Procedures Date of Service Date of Service: 09/04/23 Progress Note: A&P Assessment and plan (1) Obesity: Status: Acute Assessment and Plan: s/p laparoscopic sleeve gastrectomy and gastropexy Doing well Will check am labs and if OK the patient will be discharged home (2) BMI 35.0-35.9,adult: Status: Acute (3) Hypertension: Status: Acute (4) LVH (left ventricular hypertrophy): Status: Acute (5) Hyperlipidemia: Status: Acute (6) Liver fibrosis: Status: Acute (7) S/P laparoscopic sleeve gastrectomy: Status: Acute Time Spent With Patient Time: Total time managing care of this patient today ____ minutes. Quality Stroke Does the patient have a stroke diagnosis?: No VTE Prior VTE?: No VTE Risk Level:: Surgical - moderate VTE Device Contraindication: N/A - Device Ordered VTE Drug Contraindication: Treatment Not Indicated
--- NOTE | 2023-09-03 08:07 | PHA.MEDREC ---
Pharmacy Consult ? Medication Reconciliation Pharmacy has completed the medication reconciliation. reviewed med rec done by nursing.
--- NOTE | 2023-09-03 10:36 | PM.DS ---
DS: Providers Provider Date of Service: 09/04/23 Date of admission: 09/03/23 05:46 Primary care physician: Shorty Crawford MD DS: Diagnosis Discharge Diagnosis (1) Obesity: Status: Acute (2) BMI 35.0-35.9,adult: Status: Acute (3) Hypertension: Status: Acute (4) LVH (left ventricular hypertrophy): Status: Acute (5) Hyperlipidemia: Status: Acute (6) Liver fibrosis: Status: Acute DS: Summary Hospital Course Hospital Course: ADMITTING DIAGNOSIS: obesity, htn ? DISCHARGE DIAGNOSIS: same, s/p laparoscopic sleeve gastrectomy ? PAST SURGICAL HISTORY: none ? PROCEDURE: upper endoscopy, laparoscopic sleeve gastrectomy ? DISCHARGE SUMMARY: ? History of Present Illness: ? The patient is a?43 year-old male with a BMI of?39.7 kg/m2 and associated co-morbidities as described above. The patient had extensive work-up,lost?29.2 lbs preoperatively and was electively scheduled for laparoscopic, possible open sleeve gastrectomy and gastropexy. Risks and complications of the surgery were discussed with the patient in advance, particularly the possibility of , pulmonary embolism, anastomotic leak, bleeding, bowel injury, GERD, cardiac, renal or pulmonary complications. The patient understood all the risks and was in agreement with the surgical plan. ? Hospital Course: ? The patient underwent an uneventful laparoscopic sleeve gastrectomy with gastropexy on the day of admission. Postoperatively, the patient was transferred to the surgical floor. The patient received IV Acetaminophen and IV dilaudid for pain control. Patient was started on bariatric phase 1 diet POD #0. On postoperative day one, the patient was feeling well without nausea, vomiting, fevers, or tachycardia. The patient had some mild incisional pain and the abdomen was soft. ? On the morning of postoperative day one, the patient was continued on 1 ounce of water or ice every half hour. During the day, the patient did fairly well, having some incisional pain, but able to ambulate adequately and to tolerate liquids well. ? Since the patient is doing well, we decided that the patient was ready to be discharged. The patient was given instructions to follow-up with me next week and to call my office for any fever over 101, persistent abdominal pain, nausea, vomiting, GERD, symptoms of DVT such as calf tenderness, or leg swelling, or pulmonary embolism such as chest pain or shortness of breath. The patient was also instructed to drink 40-60 ounces of liquids per day using the 1-ounce cups. The patient had been given prescriptions for Tylenol for pain, Zofran prn for nausea, and pantoprazole and carafate previously. The patient was encouraged to ambulate and use the incentive spirometer. The patient was allowed to shower, but no baths, and encouraged to stay active at home. All of these instructions were given to the patient personally. All questions were answered and the patient understood all instructions, the instructions were also given to the patient in print. Time Attestation Total time managing care of this patient today: 25 mintues. Discharge Coordination Time (in mins): 25 Quality: Safe Use of Opioids Does Pt have an Active Cancer Diagnosis on the Problem List?: No Quality: Stroke Does the patient have a stroke diagnosis?: No Physical Exam Vital Signs: Vital Signs: Last Vital Signs Temp 97.4 F 09/03/23 06:28 Pulse 58 09/03/23 06:28 Resp 16 09/03/23 06:28 BP 155/91 H 09/03/23 06:28 Pulse Ox 96 09/03/23 06:28 O2 Del Method Room Air 09/03/23 06:28 BMI result Body Mass Index 35.3 DS: Data Data Completed and Pending Pending studies at discharge: Pending at discharge 09/03/23 10:14 Surgical [PTH] Routine Discharge Plan Discharge Anticipated Discharge Date/Time: 09/04/23 10:00 Patient Disposition: Home, Self-Care Discharge Diagnosis: s/p laparoscopic sleeve gastrectomy Referrals: Shorty Crawford MD [Primary Care Provider] - 1 Week Discharge Medications: Continued pantoprazole 40 mg tablet,delayed release (DR/EC) 40 mg PO DAILY Qty: 90 0RF sucralfate 100 mg/mL suspension 10 ml PO BID Qty: 600 2RF ondansetron 4 mg tablet,disintegrating 4 mg PO Q6H PRN (Reason: nausea and vomiting) Qty: 20 0RF Rx Instructions: Only take one every 12 hours as needed if you have nausea Held lisinopril 40 mg tablet 40 mg PO DAILY Hold Instructions: Resume on 09/05/23. Check your blood pressure every morning as soon as you wake up and send it to Dr. Hua. Do no take the blood pressure medication if the blood pressure is below 120/70. Wait every day to hear back from Dr. Hua before you take the medication. carvedilol 6.25 mg tablet 6.25 mg PO BID Hold Instructions: Resume on 09/05/23. Check your blood pressure every morning as soon as you wake up and send it to Dr. Hua. Do no take the blood pressure medication if the blood pressure is below 120/70. Wait every day to hear back from Dr. Hua before you take the medication. Rx Instructions: must administer with a meal/food nifedipine 60 mg tablet extended release 60 mg PO DAILY Hold Instructions: Resume on 09/05/23. Check your blood pressure every morning as soon as you wake up and send it to Dr. Hua. Do no take the blood pressure medication if the blood pressure is below 120/70. Wait every day to hear back from Dr. Hua before you take the medication. Discontinued multivitamin Tablet 1 tab PO DAILY omega 1-utg-qmr-fish oil [Fish Oil] 300-1,000 mg capsule 1 cap PO DAILY polyethylene glycol 3350 17 gram/dose powder 17 g PO DAILY Qty: 238 0RF Rx Instructions: Mix each measuring cup with 8oz of water, Crystal light, or Gatorade zero, or Propel and do 7 measuring cups on 09/01/23 and another 7 measuring cups on 09/02/23 Discharge Orders: Discharge Order (Routine); Ordered 09/04/23 Ordered By: Doyle Hua Activity on Discharge: No heavy lifting Stand Alone Forms: Patient Portal Discharge page Print Language: Algerian Care Plan Goals: weight loss Health Concerns: obesity Plan of Treatment: No tub baths, sex or returning to work until discussed at first post op appointment. No exercise, alcohol, tobacco or illegal drug use. Continue to use incentive spirometer hourly while awake. Walk in home for 5- 10 minutes every 2 hours during the first week. Follow all instructions in the bariatric handbook and call with any questions.Discharge Instructions 1. Please call your doctor or come back to the emergency room should any new symptoms arise. 2. You will receive a courtesy call from [facility] 24-48 hours after discharge. 3. Activity: abstain from alcohol, practice limited stair climbing, no bending, no driving, no exercise, no illicit substances, no lifting, no sex, no tub bath, no work. 4. Diet: continue as discussed with Dr. Hua. 5. Dressing Change/Wound Care: Your incision is covered by clear bandages and guaze underneath. If the area is tender, you may apply an ice pack for short intervals (no more than 20 minutes on, followed by at least 20 minutes off). Do not apply heat. Do not use creams, lotions, or topical antibiotics unless instructed to do so by your surgeon. These can cause infection or allergic reaction. 6. Call your doctor if: - Your temperature exceeds 101.5 F - You experience excessive pain or swelling - You have an unexpected reaction to medication - You have excessive bleeding - You experience continued vomiting/nausea - Your incision begins to separate - Your incision shows signs of infection such as increased redness, swelling, excessive pain, heat, or drainage (light blood or clear fluid is normal) 7. General instructions: No lifting greater than 5 lbs for 1 week and not more than 20lbs the next 3?weeks. No driving until seen at the office in 5-7 days after surgery. If you do not move your bowels in the next 2 days, please tell?Dr. Hua. Please walk around your home every hour or two to prevent blood clots from forming in your legs. You do not need to wake from sleeping to walk. Please sleep in a bed or couch to prevent kinking at the hips and knees. Please take your incentive spirometer (your lung satellite tv technician installer) home with you and use it for the next few days to prevent pneumonia. You may shower, no hot tubs, baths or swimming pools.?Please follow the post op diet instructions you are?given by Dr Hua? and text me daily at 5-6pm for an update.?If you have any issues or concerns or questions please communicate this to him via text.? The Celebrate shakes have all of the bariatric vitamins you need if you consume these shakes. If you are drinking other protein shakes, you will need to purchase the Celebrate multivitamins and calcium that are available in the hospital gift shop on the first floor of the main hospital.??Do not take anything without first discussing with Dr Hua. Please make sure you are consuming at least 40 ounces of fluids per day starting the?day AFTER your discharge from the hospital. Always drink 1-2 ml per minute using the 5ml?syringe. If you drink faster you may experience?bloating,?gas pain, burping, nausea or heartburn. In that case please slow down your pace and use the syringe to?understand better the?proper?pace and volume of drinking. Do not hesitate to contact the office with any questions at . The patient's medical history has been reviewed and they are considered low risk for post op DVT and therefore DVT prophylaxis is not considered necessary. Travel after surgery was reviewed. The patient has not disclosed any travel plans during the first 30 days after surgery and they have been advised that within the first 30 days after surgery any bus, plane, train or car travel over 2 hours in duration is contraindicated due to the possibility of developing blood clots from immobility. Any travel, needs to include periods of ambulation of 10 minutes in duration every 2 hours.? The patient was instructed to discuss any plans for travel during this period with their bariatric surgeon. Assessment: stable s/p laparodscopic sleeve gastrectomy Discharge Date/Time: 09/04/23 10:31
[2023-09-03 11:08] LABS: Hematocrit 41.8 % (42.0-52.0); Hemoglobin 14.3 g/dl (14.0-18.0)
[2023-09-03 11:17] LABS: Anion Gap 10 (12-20); Blood Urea Nitrogen 15 mg/dL (9-16); Calcium 9.1 mg/dL (8.4-10.2); Carbon Dioxide 28 mmol/L (22-29); Chloride 106 mmol/L (96-108); Creatinine Clr Calc Pharmacy 88.1; Estimated Glomerular Filt Rate 55; Glucose Random 142 mg/dL (60-115); Potassium 4.7 mmol/L (3.3-5.1); Sodium 139 mmol/L (135-145)
[2023-09-03] MEDS: HYDROmorphone HCl 0.5 MG/0.5 ML SYRINGE 0.25 MG IVPUSH ×2 (12:20→12:25)
[2023-09-03] MEDS: ondansetron HCL 4 MG/2 ML VIAL IVPUSH (12:21)
[2023-09-03] MEDS: ceFAZolin Sodium/Dextrose,Iso 2 GM/50 ML PIGGYBACK IV (13:53)
[2023-09-03] MEDS: Acetaminophen 1,000 MG/100 ML PIGGYBACK 16.7 MG IV ×2 (14:43→20:25)
[2023-09-03] MEDS: Famotidine/PF 20 MG/2 ML VIAL IVPUSH (20:25)
[2023-09-03] MEDS: carvediloL 6.25 MG TABLET PO (20:27)
[2023-09-04] MEDS: Lactated Ringers 1,000 ML 100 ML IVCONT (00:31)
[2023-09-04] MEDS: 0.9 % Sodium Chloride Flush 3 ML SYRINGE IVFLUSH (00:32)
[2023-09-04] MEDS: Acetaminophen 1,000 MG/100 ML PIGGYBACK 16.7 MG IV (02:08)
[2023-09-04 03:05] VITALS: BP 158/69; PULSE 71; RESP 16; TEMP 36.5; O2SAT 96
[2023-09-04 06:01] LABS: MANUAL DIFF FLAG NO
[2023-09-04 06:15] LABS: Basophils Percent Auto 0.2 % (0-2); Hematocrit 41.4 % (42.0-52.0); Hemoglobin 14.1 g/dl (14.0-18.0); Imm Gran Abs Auto 0.14 X10*3/uL (0.00-0.03); Imm Gran Pct Auto 0.9 % (0.0-0.4); Lymphocytes Percent Auto 12.8 % (20-40); Mean Corpuscular HGB Conc 34.1 g/dl (31.0-36.0); Mean Corpuscular Hemoglobin 28.2 pg (27.0-33.0); Mean Corpuscular Volume 82.8 fL (80.0-98.0); Mean Platelet Volume 10.2 fL (9.4-12.4); Monocytes Absolute Auto 0.8 X10*3/uL (0.1-1.2); Monocytes Percent Auto 5.4 % (2-11); Neutrophils Absolute Auto 12.6 x10*3/uL (2.0-8.3); Neutrophils Percent Auto 80.7 % (45-73); Platelet Count 245 X10*3/uL (160-400); Red Cell Distribution Width 12.6 % (11.0-16.0); White Blood Count 15.6 X10*3/uL (4.8-10.8)
[2023-09-04 06:26] LABS: Anion Gap 13 (12-20); Blood Urea Nitrogen 14 mg/dL (9-16); Calcium 9.2 mg/dL (8.4-10.2); Carbon Dioxide 24 mmol/L (22-29); Chloride 105 mmol/L (96-108); Creatinine Clr Calc Pharmacy 101.8; Estimated Glomerular Filt Rate > 60; Glucose Random 110 mg/dL (60-115); Potassium 3.8 mmol/L (3.3-5.1); Sodium 138 mmol/L (135-145)
[2023-09-04 07:39] VITALS: BP 178/88; PULSE 66; RESP 14; TEMP 36.2; O2SAT 98
[2023-09-04] MEDS: lisinopriL 40 MG TABLET PO (07:42)
[2023-09-04] MEDS: NIFEdipine ER 30 MG TAB.ER.24 60 MG PO (07:42)
[2023-09-04] MEDS: carvediloL 6.25 MG TABLET PO (07:42)
[2023-09-04] MEDS: Famotidine/PF 20 MG/2 ML VIAL IVPUSH (07:42)
[2023-09-04 09:30] VITALS: BP 170/88
--- NOTE | 2023-09-04 10:41 | MHC.CM.PN ---
Patient dc'd home self care prior to CM assessment.
--- NOTE | 2023-09-04 11:28 | HO.POSTANES ---
Post Anesthesia Evaluation Post Anesthesia Evaluation Date of Service: 09/03/23 Vital Signs: Vital Signs Temp Pulse Resp BP Pulse Ox O2 Del Method 09/04/23 09:30 170/88 H 09/04/23 07:39 97.1 F 66 14 178/88 H 98 Room Air 09/04/23 03:05 97.7 F 71 16 158/69 H 96 Room Air 09/03/23 23:41 98.2 F 70 16 158/87 H 94 Room Air Anesthesia: General Mental Status: Awake Pain Control: Satisfactory Nausea/Vomiting: None Hydration: Adequate Anesthesia-Related Issues: No Anes. Related Issues
== END 2023-09-04 10:31 | disposition home or self-care (01) | DRG 403 ==
LOC: HO.SSSA 10:39 → HO.S3 12:36
PROVIDERS: Physician Assistant Surgical; Admitting Provider Surgery; PCP Internal Medicine; Visit Provider Surgery
PROC: 0DB64Z3 Excision of Stomach, Percutaneous Endoscopic Approach, Vertical (ICD-10-PCS; CPT 43845; principal; 2023-09-03 07:30)
DX: E66.01 Morbid (severe) obesity due to excess calories (principal); K74.00 Hepatic fibrosis, unspecified; I11.9 Hypertensive heart disease without heart failure; E78.5 Hyperlipidemia, unspecified; Z68.35 Body mass index [BMI] 35.0-35.9, adult; Z79.899 Other long term (current) drug therapy
CPT/HCPCS: 36415; 80048; 85014; 85018; 85025; 86850; 86900; 86901; 88304; 88307; 88342; A4649; C9088; C9145; J0131; J0690; J1100; J1170; J2250; J2405; J2704; J2795; J3010; J7120

== ENCOUNTER → 2023-09-03 05:46 | Outpatient (BNV) | payer BC, SELFPAY | PROVIDERS: Admitting Provider Surgery; PCP Internal Medicine; Visit Provider Surgery | DX: E66.9 Obesity, unspecified (principal); Z68.35 Body mass index [BMI] 35.0-35.9, adult; K44.9 Diaphragmatic hernia without obstruction or gangrene | CPT/HCPCS: 43659; 43775; 99024; 99499 ==

== ENCOUNTER 2023-09-12 10:30 | Outpatient (AMB) | payer BC, SELFPAY ==
--- NOTE | 2023-09-12 11:08 | A.OFFVIS_ITS ---
VS Expanded 09/12/23 11:28 BP 142/92 H Blood Pressure Location Rt brachial Blood Pressure Position Sitting Pulse 66 Pulse Source Pulse Oximeter Temp 98.4 F Temperature Source Tympanic Pulse Oximetry 97 Oxygen Delivery Method Room Air Height 5 ft 10.5 in Weight 239 lb 3.2 oz BMI 33.8 Body Fat % 29.9 Body Fat Mass 71.4 Fat Free Mass 167.6 Visceral Fat Rating 14.0 Body Water % 50.2 Body Water Mass 120.0 Muscle Mass/Score 159.4 Basal Metabolic Rate/Score 2,277 Intake Visit Reasons: (OV) PO LSG 09/03/23 Allergies No Known Allergies [No Known Allergies*] Allergy (Verified 09/12/23 11:31) HPI Comments Details: Very pleasant 43-year-old male who returns to the office. He is 9 days status post sleeve gastrectomy performed on 08/1923. He reports feeling very well. He is tolerating 2 celebrate 4 in 1 shakes with 2 scoops each and 1 celebrate rebuild shake with 1 scoop. He is additionally drinking approximately 50-60 oz per day. He is moved his bowels. He has no complaints of pain. ON LICENSE OF [facility] Medical History (Updated 09/06/23 @ 00:03 by Alyssa Sargent) Preop cardiovascular exam Abnormal echocardiogram Abnormal EKG Morbid obesity Hyperlipidemia HTN (hypertension) Arthritis Surgical History (Updated 09/12/23 @ 11:32 by Eve Conroy CMA) Hx of laparoscopic partial gastrectomy H/O wisdom tooth extraction Family History Sister Breast cancer in situ Brain cancer Social History Household Members: Family Household Members Other:: brother Housing: House Are you a primary day care attendant to a significant other at home: No Do you presently have visiting nurse or other home services: No Alcohol intake: current Alcohol intake frequency: does not drink Alcohol type: hard liquor Patient Tobacco Use Status: Never used Tobacco Substance Use Type: Marijuana Current occupational status: employed 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 Original weight on 01/01/2023 was 280.6 pounds and op weight was 251.4 pounds. Be sure to text Dr Hua exactly 1 week after surgery your weight from your home scale so he can adjust your meal plan. Continue meal plan until f/u daniel Rodriguez in 2 weeks May shower, no submersion in bath for another week Continue abdominal binder with activity and exercise for the next 2 weeks. Exercise prior to surgery was walking outside 5-7 miles and may resume No abdominal exercises for 6 weeks post operatively Will be emailed link to post op video for review Reminded of the pace of drinking, 2 mL per minute, 1 oz/15 min.
[2023-09-12 11:28] VITALS: BP 142/92; PULSE 66; TEMP 36.9; O2SAT 97; BMI 33.8
== END 2023-09-12 12:01 | disposition home or self-care (01) ==
PROVIDERS: PCP Internal Medicine; Visit Provider Physician Assistant Surgical
DX: Z98.84 Bariatric surgery status (principal)
CPT/HCPCS: 99024

== ENCOUNTER → 2023-09-12 10:30 | Outpatient (BNVA) | payer BC, SELFPAY | PROVIDERS: PCP Internal Medicine; Visit Provider Physician Assistant Surgical ==

== ENCOUNTER 2023-09-30 13:39 | Outpatient (AMB) | payer BC, SELFPAY ==
--- NOTE | 2023-09-30 08:59 | A.OFFVIS_ITS ---
VS Expanded 09/30/23 09:02 Height 5 ft 10.5 in Weight 232 lb 2 oz BMI 32.8 Body Fat % 30.8 Intake Visit Reasons: TV PO LSG 09/03/23 Allergies No Known Allergies [No Known Allergies*] Allergy (Verified 09/12/23 11:31) HPI Comments Details: This?a?43?yo male who is s/p LSG without hiatal hernia repair on?09/03/23. Presents for 1 month post op visit. Weight today is 232.2 pounds, with a BMI of 32.8. There has been a 48.4 pound weight loss,(initial weight 280.6 pounds) since starting the program on 01/01/23 reflecting a 17.2% total body weight loss and a weight loss of 19.2 pounds since surgery (operative weight 251.4 pounds) reflecting a 7.6% TBWL since surgery. No complaints of nausea, emesis, abdominal pain or reflux. Reports infrequent but normal bowel movements every 1- 2 days and uses stool softeners regularly. Checking BP at home 130/70-80, taking 1/2 of each of his BP meds, feels tired around 5 pm, sleeping great. He states that overall, he feels great except notices fatigue in the late afternoon. He has not been monitoring his heart rate with his blood pressure check in the morning. Present meal plan includes: Celebrate 4 in 1 shakes 2 scoops each in 8 oz almond milk, 8-10, 11-1 Celebrate rebuild 2 scoops, 2-4 Celebrate bar 5-8 48 oz water ? Exercise routine includes: walking outside, 3-5 miles, 5-6 x per week, 500-600 PFSH Medical History (Updated 09/06/23 @ 00:03 by Alyssa Sargent) Preop cardiovascular exam Abnormal echocardiogram Abnormal EKG Morbid obesity Hyperlipidemia HTN (hypertension) Arthritis Surgical History (Updated 09/12/23 @ 11:32 by Eve Conroy CMA) Hx of laparoscopic partial gastrectomy H/O wisdom tooth extraction Family History Sister Breast cancer in situ Brain cancer Social History Household Members: Family Household Members Other:: brother Housing: House Are you a primary career technical education instructor to a significant other at home: No Do you presently have visiting nurse or other home services: No Alcohol intake: current Alcohol intake frequency: does not drink Alcohol type: hard liquor Patient Tobacco Use Status: Never used Tobacco Substance Use Type: Marijuana Current occupational status: employed 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 Telehealth Telehealth Telehealth Platform: Telephone Location of provider rendering services: practice address Location of patient: address on file Patient Identification confirmed using: Name, : Yes Telehealth method: voice only Patient verbally consented to treatment: Yes Patient verbally consented to billing insurance company: Yes Patient informed of any privacy concerns related to visit: Yes Minutes spent on Phone/Video with Pt.: 15 Assessment & Plan Assessment & Plan (1) S/P laparoscopic sleeve gastrectomy: Code(s): Z98.84 - Bariatric surgery status Category: Medical Plan: I made the suggestion to switch the bar and celebrate rebuild shake times. Additionally, monitor his heart rate in the morning. Suggest potentially reducing the a.m. half tab of carvedilol. Encouraged to continue to communicate via text. Follow-up in 1 month.
[2023-09-30 09:02] VITALS: BMI 32.8
== END 2023-09-30 14:01 | disposition home or self-care (01) ==
LOC: HO.HBS 13:39
PROVIDERS: PCP Internal Medicine; Visit Provider Physician Assistant Surgical
DX: Z98.84 Bariatric surgery status (principal)
CPT/HCPCS: 99024

== ENCOUNTER → 2023-09-30 13:39 | Outpatient (BNVA) | payer BC, SELFPAY | PROVIDERS: PCP Internal Medicine; Visit Provider Physician Assistant Surgical | DX: Z98.84 Bariatric surgery status (principal) ==

== ENCOUNTER 2023-11-11 14:24 | Outpatient (AMB) | payer BC, SELFPAY ==
[2023-11-11 12:52] VITALS: BMI 30.6
--- NOTE | 2023-11-11 12:52 | MHC.OFFVISWM ---
VS Expanded 11/11/23 12:52 Height 5 ft 10.5 in Weight 216 lb BMI 30.6 Body Fat % 27.3 Body Fat Mass 59 Fat Free Mass 157.2 Visceral Fat Rating 13 Body Water % 52.5 Body Water Mass 112.4 Muscle Mass/Score 149.4 Basal Metabolic Rate/Score 1,894 Intake Visit Reasons: TV PO LSG 09/03/23 Clothing Room Supervisor Required: No Allergies No Known Allergies [No Known Allergies*] Allergy (Verified 09/12/23 11:31) Medication List - Last Reconciled 11/11/23 by CHAYITO Bright carvedilol 6.25 mg PO BID lisinopril 40 mg PO DAILY nifedipine ER 60 mg PO DAILY pantoprazole 40 mg PO DAILY sucralfate 10 mL PO BID HPI Comments Details: his?a?43?yo male who is s/p LSG without hiatal hernia repair on?09/03/23. Presents for 2 month post op visit. Weight today is 216.2 pounds, with a BMI of 30.6. There has been a 64.4 pound weight loss,(initial weight 280.6 pounds) since starting the program on 01/01/23 reflecting a 22.9% total body weight loss and a weight loss of 35.4 pounds since surgery (operative weight 251.4 pounds) reflecting a 14 % TBWL since surgery. No complaints of nausea, emesis, abdominal pain or reflux. Reports infrequent but normal bowel movements every 1-2 days and uses stool softeners regularly. Not checking BP,, taking 1/2 of each of his BP meds, feels tired around 5 pm, sleeping great. He states that overall, he feels great no complaints of fatigue or lightheadedness He has not been monitoring his heart rate with his blood pressure check in the morning. Present meal plan includes: Celebrate 4 in 1 shakes 2 scoops each in 8 oz almond milk, 8-10, 11-1 Celebrate rebuild 2 scoops, 2-4 Celebrate bar 5-8 48 oz water ? Exercise routine includes: walking outside, 5 miles, 4 x per week, [address] he is doing a walk/jog, 2 mi walk and 3 mi jogging [facility] Medical History Preop cardiovascular exam Abnormal echocardiogram Abnormal EKG Morbid obesity Hyperlipidemia HTN (hypertension) Arthritis Surgical History Hx of laparoscopic partial gastrectomy H/O wisdom tooth extraction Family History Sister Breast cancer in situ Brain cancer Social History Household Members: Family Household Members Other:: brother Housing: House Are you a primary healthcare social worker to a significant other at home: No Do you presently have visiting nurse or other home services: No Alcohol intake: current Alcohol intake frequency: does not drink Alcohol type: hard liquor Patient Tobacco Use Status: Never used Tobacco Substance Use Type: Marijuana Current occupational status: employed 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 Telehealth Telehealth Telehealth Platform: Telephone Location of provider rendering services: practice address Location of patient: address on file Patient Identification confirmed using: Name, : Yes Telehealth method: voice only Patient verbally consented to treatment: Yes Patient verbally consented to billing insurance company: Yes Patient informed of any privacy concerns related to visit: Yes Minutes spent on Phone/Video with Pt.: 12 Assessment & Plan Assessment & Plan (1) Obesity (BMI 30-39.9): Code(s): E66.9 - Obesity, unspecified Category: Medical Plan: Celebrate 4 in 1 shakes 2 scoops each in 8 oz almond milk, 8-10, 11-1 Celebrate rebuild 1 scoop, 2-4 Celebrate bar 5-8 Change meal plans slightly as above. Additionally, encouraged to try to increase exercise by 1 day if he is able. Discussed the importance of monitoring his blood pressure as he is taking 3 blood pressure medications and not checking his blood pressure at home. He states he will do so. He will text weekly with weights and if he has any questions or concerns.
== END 2023-11-11 14:26 | disposition home or self-care (01) ==
LOC: HO.HBS 14:24
PROVIDERS: PCP Internal Medicine; Visit Provider Physician Assistant Surgical
DX: E66.9 Obesity, unspecified (principal)
CPT/HCPCS: 99024

== ENCOUNTER → 2023-11-11 14:24 | Outpatient (BNVA) | payer BC, SELFPAY | PROVIDERS: PCP Internal Medicine; Visit Provider Physician Assistant Surgical ==